=== PATIENT | female | born 1980 | race Caucasian/White ===

== ENCOUNTER 2020-02-14 03:50 | Emergency (ER) | payer MEDICAID ==
[~2020-02-14] VITALS: Ht 160 cm; Wt 75.8 kg
[2020-02-14] MEDS ORDERED: HUMALOG100 UNITS/ IV (04:06)
[2020-02-14] MEDS ORDERED: ASPIR 8181 MG PO (04:07)
[2020-02-14] MEDS ORDERED: LANTUS100 UNITS/ SUB-Q (04:07)
[2020-02-14] MEDS ORDERED: ULTRAM50 MG PO (04:36)
[2020-02-14] MEDS ORDERED: KEFLEX500 MG PO (04:36)
== END 2020-02-14 04:55 | disposition home or self-care (01) ==
LOC: ED 03:50
DX: K08.89 Other specified disorders of teeth and supporting structures (principal); K03.81 Cracked tooth; E11.9 Type 2 diabetes mellitus without complications; Z91.048 Other nonmedicinal substance allergy status; Z79.4 Long term (current) use of insulin; Z79.82 Long term (current) use of aspirin
CPT/HCPCS: 99282; A9270

== ENCOUNTER 2021-10-09 09:21 | Emergency (ER) | payer MEDICAID ==
[~2021-10-09] VITALS: Ht 160 cm; Wt 67.9 kg
[~2021-10-09 09:21] MED LIST: ASPIR 8181 MG PO; HUMALOG100 UNITS/ IV; KEFLEX500 MG PO; LANTUS100 UNITS/ SUB-Q; ULTRAM50 MG PO
--- OUTSIDE RECORDS SUMMARY | 2021-10-09 09:28 | XMS ---
PreManage Notification: MIKE GLASGOW Security House Cleaner Events No recent Security Events currently on file CRITERIA MET - [facility] - 2 Visits in 30 Days CARE PROVIDERS ABEL TANG Physician Platen Press Operator Apprentice: Medical Current PHONE: Unknown MORENA YUN [facility] Current PHONE: Unknown Samantha has no Care Guidelines for this patient. Evelio VISIT COUNT (12 MO.) 2 Machelle Sterling [address] [place] [address] TOTAL 3 NOTE: Visits indicate total known visits. ED/UCC VISIT TRACKING (12 MO.) 10/09/2021 09:22 TAE Major TYPE: Emergency COMPLAINT: - VOMITING, DIARRHEA 10/02/2021 17:16 Machelle [facility] TYPE: Emergency DIAGNOSES: - Flank Pain - Abscess - Dysuria - Hyperglycemia, unspecified - Candidiasis, unspecified - Laceration on Back - Cellulitis, unspecified - Cutaneous abscess, unspecified - Sepsis, unspecified organism 03/25/2021 12:57 Machelle [facility] TYPE: Emergency DIAGNOSES: - Cutaneous abscess of neck - Back Pain; Abscess - Urinary tract infection, site not specified - Hyperglycemia, unspecified - Other stimulant abuse, uncomplicated - Abscess INPATIENT VISIT TRACKING (12 MO.) 10/02/2021 17:16 Nondenominationalkyle [facility] TYPE: Medical Surgical DIAGNOSES: - Cutaneous abscess, unspecified - Hyperglycemia, unspecified - Urinary tract infection, site not specified - Cellulitis, unspecified - Dysuria - Candidiasis, unspecified - Sepsis, unspecified organism [email or web address]
[2021-10-09] MEDS ORDERED: AMOX TR-K CLV1 EAC1 PO (18:35)
[2021-10-09] MEDS ORDERED: PROMETHAZINE HC25 M1 PO (18:35)
== END 2021-10-09 18:52 | disposition home or self-care (01) ==
LOC: ED 09:21
DX: A59.9 Trichomoniasis, unspecified (principal); N39.0 Urinary tract infection, site not specified; R19.7 Diarrhea, unspecified; R11.2 Nausea with vomiting, unspecified; E11.9 Type 2 diabetes mellitus without complications; Z91.048 Other nonmedicinal substance allergy status; Z88.5 Allergy status to narcotic agent; Z79.4 Long term (current) use of insulin
CPT/HCPCS: 36415; 80053; 81001; 85025; 87493; 96374; 96375; 96376; 99284-25; J1790; J2405; J7030

== ENCOUNTER 2021-10-19 09:45 | Emergency (ER) | payer MEDICAID ==
[~2021-10-19] VITALS: Ht 160 cm; Wt 67.6 kg
[~2021-10-19 09:45] MED LIST changes: +AMOX TR-K CLV1 EAC1 PO; +PROMETHAZINE HC25 M1 PO
--- OUTSIDE RECORDS SUMMARY | 2021-10-19 09:52 | XMS ---
PreManage Notification: MIKE GLASGOW Security Ladle Car Operator Events No recent Security Events currently on file CRITERIA MET - [facility] - 2 Visits in 30 Days CARE PROVIDERS ABEL TANG Physician Retail Merchandiser Technician: Medical Current PHONE: Unknown MORENA YUN [facility] Current PHONE: Unknown Samantha has no Care Guidelines for this patient. Evelio VISIT COUNT (12 MO.) 3 Machelle Sterling 2 [facility] TOTAL 5 NOTE: Visits indicate total known visits. ED/UCC VISIT TRACKING (12 MO.) 10/19/2021 09:46 TAE Major TYPE: Emergency COMPLAINT: - VOMITING 10/17/2021 17:02 Machelle [facility] TYPE: Emergency DIAGNOSES: - Hypomagnesemia - Nausea - Hypokalemia - Hyperglycemia, unspecified - Abdominal Pain 10/09/2021 09:22 [place] TYPE: Emergency COMPLAINT: - VOMITING, DIARRHEA DIAGNOSES: - Nausea with vomiting, unspecified - Diarrhea, unspecified - Other nonmedicinal substance allergy status - Type 2 diabetes mellitus without complications - Urinary tract infection, site not specified - half-way (current) use of insulin - Trichomoniasis, unspecified - Allergy status to narcotic agent 10/02/2021 17:16 Machelle CORDERO TYPE: Emergency DIAGNOSES: - Flank Pain - Abscess - Dysuria - Hyperglycemia, unspecified - Candidiasis, unspecified - Laceration on Back - Cellulitis, unspecified - Cutaneous abscess, unspecified - Sepsis, unspecified organism 03/25/2021 12:57 Machelle CORDERO TYPE: Emergency DIAGNOSES: - Cutaneous abscess of neck - Back Pain; Abscess - Urinary tract infection, site not specified - Hyperglycemia, unspecified - Other stimulant abuse, uncomplicated - Abscess INPATIENT VISIT TRACKING (12 MO.) 10/02/2021 17:16 Machelle CORDERO TYPE: Medical Surgical DIAGNOSES: - Cutaneous abscess, unspecified - Hyperglycemia, unspecified - Urinary tract infection, site not specified - Cellulitis, unspecified - Dysuria - Candidiasis, unspecified - Sepsis, unspecified organism [email or web address]
== END 2021-10-19 19:38 ==
LOC: ED 09:45
DX: N17.9 Acute kidney failure, unspecified (principal); E11.65 Type 2 diabetes mellitus with hyperglycemia; R11.2 Nausea with vomiting, unspecified; Z91.048 Other nonmedicinal substance allergy status; Z88.5 Allergy status to narcotic agent; Z79.899 Other long term (current) drug therapy; Z20.822 Contact with and (suspected) exposure to COVID-19
CPT/HCPCS: 36415; 80048; 80053; 81001; 82010; 82803; 83735; 84703; 85025; 96374; 99284-25; A9270; C9803; J1790; J1815; J7030; U0003

== ENCOUNTER 2022-06-16 21:01 | Emergency (ER) | payer MEDICAID ==
[~2022-06-16] VITALS: Ht 162.6 cm; Wt 65.3 kg
--- OUTSIDE RECORDS SUMMARY | 2022-06-16 21:10 | XMS ---
PreManage Notification: MIKE GLASGOW Security Skin Installer Events 1 event(s) in the past 18 months Most recent security events: Elopement at [facility] 10/19/2021 09:46 - Patient eloped before treatment completed. - Patient with suicidal and/or homicidal ideations eloped. - Patient eloped with IV in place. Details: PATIENT LEFT AMA CRITERIA MET - [facility] - 2 Visits in 30 Days - 6 ED Visits in 6 Months CARE PROVIDERS ABEL TANG Physician Stretcher Leveler Operator Helper: Medical Current PHONE: Unknown MORENA YUN [facility] Current PHONE: Unknown Samantha has no Care Guidelines for this patient. ELuzmaria. VISIT COUNT (12 MO.) [address] [facility] [facility] Aguirre[facility] TOTAL 26 NOTE: Visits indicate total known visits. ED/UCC VISIT TRACKING (12 MO.) 06/16/2022 21:02 [facility] [place] TYPE: Emergency COMPLAINT: - SWALLOW PROBLEM, FLANK PAIN, DIZZYNESS 06/15/2022 16:03 [facility] [place] TYPE: Emergency COMPLAINT: - ABD PAIN, VOMITING, SHARP PAIN IN STERNUM 06/12/2022 20:24 Sabianism CarlaJose [facility] TYPE: Emergency DIAGNOSES: - Vomiting; Abdominal Pain - Emesis 06/11/2022 09:18 Sabianism CarlaJose [facility] TYPE: Emergency DIAGNOSES: - Vomiting (Severe) - vomitting - Upper abdominal pain, unspecified - Nausea with vomiting, unspecified 06/10/2022 04:12 Sabianism CarlaJose [facility] TYPE: Emergency DIAGNOSES: - Vomitting, abdominal pain - Nausea with vomiting, unspecified - Generalized abdominal pain 05/30/2022 23:50 Sabianism CarlaJose [facility] TYPE: Emergency DIAGNOSES: - Wound Check - Facial swelling - Cellulitis, unspecified 04/16/2022 04:06 Sabianism Carla[place] TYPE: Emergency DIAGNOSES: - Syncope and collapse - Syncope - chin, knee, abdominal pain 04/15/2022 09:45 Machelle Diego[facility] TYPE: Emergency DIAGNOSES: - Emesis - FCI (current) use of insulin - Epigastric pain - Trichomoniasis, unspecified - Hyperglycemia, unspecified - Type 2 diabetes mellitus with hyperglycemia - stomach pain,fever - Nausea with vomiting, unspecified 04/13/2022 17:20 Sabianism CarlaJose [place] TYPE: Emergency DIAGNOSES: - Other specified soft tissue disorders - Localized edema - FCI (current) use of insulin - Other specified diabetes mellitus with hyperglycemia - Leg Swelling - Type 2 diabetes mellitus with diabetic chronic kidney disease - Chronic kidney disease, unspecified - Other specified abnormal findings of blood chemistry - Type 2 diabetes mellitus with hyperglycemia 03/30/2022 07:10 Sabianism CarlaJose [place] TYPE: Emergency DIAGNOSES: - Pilonidal cyst with abscess - Other injury of unspecified body region, initial encounter - Other acute postprocedural pain - Pain, unspecified - post surgery pain - Wound 03/29/2022 15:38 Sabianism Jose [facility] TYPE: Emergency DIAGNOSES: - Pilonidal cyst with abscess - Abscess - Leg Edema 03/28/2022 19:00 Sabianism Jose [facility] TYPE: Emergency DIAGNOSES: - Abscess - Sore 02/20/2022 15:30 Sabianism Jose [facility] TYPE: Emergency DIAGNOSES: - Emesis - Vomitting - Tachycardia, unspecified - Duodenitis without bleeding - Other specified noninflammatory disorders of uterus - Other specified disease of esophagus 02/15/2022 15:38 Sabianism Asher [facility] TYPE: Emergency DIAGNOSES: - Hyperglycemia, unspecified - Emesis - Constipation, unspecified - Nausea, Vomiting - Nausea with vomiting, unspecified 02/14/2022 12:18 [facility]: [facility] DIAGNOSES: - Wound check;Vomitting;Constipated 02/13/2022 06:26 [facility] TYPE: Emergency DIAGNOSES: - Vomiting - Constipation, unspecified - Emesis - Hyperglycemia, unspecified - Nausea with vomiting, unspecified 02/10/2022 16:03 [facility] TYPE: Emergency DIAGNOSES: - Wound Check - Wound on Back - Cutaneous abscess of right upper limb 01/10/2022 01:31 Sabian[facility] CarlaJose [place] TYPE: Emergency DIAGNOSES: - Vomiting - Viral infection, unspecified - Type 2 diabetes mellitus with hyperglycemia - Dehydration - Emesis 12/25/2021 16:26 [facility] TYPE: Emergency COMPLAINT: - Pruritus, unspecified DIAGNOSES: 1. Pruritus, unspecified 2. Cellulitis, unspecified 10/26/2021 12:17 [facility] TYPE: Emergency COMPLAINT: - Type 2 diabetes mellitus with hyperglycemia - Encounter for issue of repeat prescription DIAGNOSES: 1. Type 2 diabetes mellitus with hyperglycemia 2. Encounter for issue of repeat prescription Plus 6 More Visits INPATIENT VISIT TRACKING (12 MO.) 10/02/2021 17:16 Machelle CORDERO TYPE: Medical Surgical DIAGNOSES: - Hyperglycemia, unspecified - Sepsis, unspecified organism - Dysuria - Urinary tract infection, site not specified - Cutaneous abscess, unspecified - Candidiasis, unspecified - Cellulitis, unspecified [id number]
[2022-06-17] MEDS ORDERED: DICYCLOMINE HCL10 MG PO (00:14)
[2022-06-17] MEDS ORDERED: HUMALOG100 UNITS/ IV (00:14)
[2022-06-17] MEDS ORDERED: LIPITOR10 MG PO (00:15)
[2022-06-17] MEDS ORDERED: LANTUS100 UNITS/ SUB-Q (00:15)
[2022-06-17] MEDS ORDERED: ATORVASTATIN CA10 MG PO (00:15)
[2022-06-17] MEDS ORDERED: CEPHALEXIN500 M1 PO (00:15)
[2022-06-17] MEDS ORDERED: DOXYCYCLINE HY100 MG PO (00:15)
[2022-06-17] MEDS ORDERED: OMEPRAZOLE20 MG PO (00:15)
[2022-06-17] MEDS ORDERED: ZESTRIL5 MG PO (00:16)
[2022-06-17] MEDS ORDERED: VAZALORE81 MG PO (00:16)
[2022-06-17] MEDS ORDERED: MAGNESIUM OXID400 M1 PO (06:36)
== END 2022-06-17 07:48 | disposition home or self-care (01) ==
LOC: ED 21:01
DX: N17.9 Acute kidney failure, unspecified (principal); E11.22 Type 2 diabetes mellitus with diabetic chronic kidney disease; N18.9 Chronic kidney disease, unspecified; E83.42 Hypomagnesemia; Z20.822 Contact with and (suspected) exposure to COVID-19; Z88.2 Allergy status to sulfonamides; Z88.5 Allergy status to narcotic agent; Z79.899 Other long term (current) drug therapy; Z79.4 Long term (current) use of insulin; Z79.82 Long term (current) use of aspirin
CPT/HCPCS: 36415; 73110; 80048; 80053; 81001; 82565; 83735; 84520; 84703; 85025; 87502; 96361; 96365; 96366; 99284-25; J3475; J7030; J7121; U0003

== ENCOUNTER 2022-07-14 01:47 | Emergency (ER) | payer MEDICAID ==
[~2022-07-14] VITALS: Ht 162.6 cm; Wt 67.1 kg
[~2022-07-14 01:47] MED LIST changes: +ATORVASTATIN CA10 MG PO; +CEPHALEXIN500 M1 PO; +DICYCLOMINE HCL10 MG PO; +DOXYCYCLINE HY100 MG PO; +LIPITOR10 MG PO; +MAGNESIUM OXID400 M1 PO; +OMEPRAZOLE20 MG PO; +VAZALORE81 MG PO; +ZESTRIL5 MG PO
--- OUTSIDE RECORDS SUMMARY | 2022-07-14 01:52 | XMS ---
PreManage Notification: MIKE GLASGOW Security Miller Wood Flour Events 1 event(s) in the past 18 months Most recent security events: Elopement at [facility] 10/19/2021 09:46 - Patient eloped before treatment completed. - Patient with suicidal and/or homicidal ideations eloped. - Patient eloped with IV in place. Details: PATIENT LEFT AMA CRITERIA MET - [facility] - 3 Facilities in 90 Days - [facility] - 2 Visits in 30 Days - [facility] - Has Care Guidelines - 6 ED Visits in 6 Months CARE PROVIDERS ABEL TANG Physician Credit Reference Clerk: Medical Current PHONE: Unknown MORENA YUN [facility] Current PHONE: Unknown Guidelines Source: [facility] Guidelines Date: 06/19/2022 Care Recommendation: -Provide patient with educational materials that support access and utilization of appropriate care resources. Ensure that this information illustrates community-based care sites such as clinics, urgent cares and non-acute care sites that provide off-hour services. Additionally, provide these educational materials in a format that support your communitys language and cultural preferences. Refer to CM/SW when warranted to discuss possible secondary gains, missed needs, barriers to care, or to redirect to community providers. \T\nbsp; Encourage patient to seek care from a community provider to improve continuity of care. \T\ nbsp; Recommend no routine medication refills to encourage community follow-up.\ T\nbsp; Please provide community resources to patients that do not have a designated primary care provider. Pain/Opioid Agreement: Talk to patients about a treatment plan. Discuss realistic goals for pain and functionhelp them to understand that pain is a normal part of life and healing. Make sure they know the significant risks associated with opioid use \T\nbsp; Care History Substance Use/Overdose 06/19/2022 [facility] Uses methamphetamines. 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 E.D. VISIT COUNT (12 MO.) 4 [facility] 18 [facility] 1 [facility] 5 [facility]. TOTAL 28 NOTE: Visits indicate total known visits. ED/UCC VISIT TRACKING (12 MO.) 07/14/2022 01:48 TAE Major TYPE: Emergency COMPLAINT: - COUGH 07/09/2022 15:05 [facility] Janusz CORDERO TYPE: Emergency DIAGNOSES: - n/v - Tubulo-interstitial nephritis, not specified as acute or chronic - Emesis - Tachycardia, unspecified - Abdominal Pain - Epigastric pain 06/16/2022 21:02 TAE [facility] TYPE: Emergency COMPLAINT: - SWALLOW PROBLEM, FLANK PAIN, DIZZYNESS DIAGNOSES: - correction (current) use of insulin - Vomiting, unspecified - Type 2 diabetes mellitus with diabetic chronic kidney disease - Allergy status to narcotic agent - Acute kidney failure, unspecified - Chronic kidney disease, unspecified - Allergy status to sulfonamides - Hypomagnesemia - Other termite control technician (current) drug therapy - watermelon inspector (current) use of aspirin - Contact with and (suspected) exposure to COVID-19 06/15/2022 16:03 TAE [place] TYPE: Emergency COMPLAINT: - ABD PAIN, VOMITING, SHARP PAIN IN STERNUM 06/12/2022 20:24 [place] TYPE: Emergency DIAGNOSES: - Emesis - Vomiting; Abdominal Pain 06/11/2022 09:18 [facility]le [facility] [place] TYPE: Emergency DIAGNOSES: - vomitting - Upper abdominal pain, unspecified - Nausea with vomiting, unspecified - Vomiting (Severe) 06/10/2022 04:12 [facility]le [facility] [place] TYPE: Emergency DIAGNOSES: - Nausea with vomiting, unspecified - Generalized abdominal pain - Vomitting, abdominal pain 05/30/2022 23:50 [facility]achelle [facility] [place] TYPE: Emergency DIAGNOSES: - Facial swelling - Cellulitis, unspecified - Wound Check 04/16/2022 04:06 [facility]le [facility] [place] TYPE: Emergency DIAGNOSES: - Syncope - chin, knee, abdominal pain - Syncope and collapse 04/15/2022 09:45 [facility]le [facility] [place] TYPE: Emergency DIAGNOSES: - Epigastric pain - Trichomoniasis, unspecified - Hyperglycemia, unspecified - Type 2 diabetes mellitus with hyperglycemia - stomach pain,fever - Nausea with vomiting, unspecified - Emesis - correction (current) use of insulin 04/13/2022 17:20 Denomin[facility] CarlaJose [place] TYPE: Emergency DIAGNOSES: - Other specified diabetes mellitus with hyperglycemia - Leg Swelling - Type 2 diabetes mellitus with diabetic chronic kidney disease - Chronic kidney disease, unspecified - Other specified abnormal findings of blood chemistry - Type 2 diabetes mellitus with hyperglycemia - Other specified soft tissue disorders - Localized edema - correction (current) use of insulin 03/30/2022 07:10 Denominational CarlaJose [place] TYPE: Emergency DIAGNOSES: - Other injury of unspecified body region, initial encounter - Other acute postprocedural pain - Pain, unspecified - post surgery pain - Wound - Pilonidal cyst with abscess 03/29/2022 15:38 Denominational CarlaJose [place] TYPE: Emergency DIAGNOSES: - Abscess - Leg Edema - Pilonidal cyst with abscess 03/28/2022 19:00 Denominational CarlaJose [place] TYPE: Emergency DIAGNOSES: - Sore - Abscess 02/20/2022 15:30 Denominationaloz [facility] TYPE: Emergency DIAGNOSES: - Vomitting - Tachycardia, unspecified - Duodenitis without bleeding - Other specified noninflammatory disorders of uterus - Other specified disease of esophagus - Emesis 02/15/2022 15:38 Machelle [facility] TYPE: Emergency DIAGNOSES: - Emesis - Constipation, unspecified - Nausea, Vomiting - Nausea with vomiting, unspecified - Hyperglycemia, unspecified 02/14/2022 12:18 [facility] TYPE: Emergency DIAGNOSES: - Wound check;Vomitting;Constipated 02/13/2022 06:26 [facility] TYPE: Emergency DIAGNOSES: - Constipation, unspecified - Emesis - Hyperglycemia, unspecified - Nausea with vomiting, unspecified - Vomiting 02/10/2022 16:03 Denominational CarlaJose [facility] [place] TYPE: Emergency DIAGNOSES: - Wound on Back - Cutaneous abscess of right upper limb - Wound Check 01/10/2022 01:31 Denominational CarlaJose [place] TYPE: Emergency DIAGNOSES: - Viral infection, unspecified - Type 2 diabetes mellitus with hyperglycemia - Dehydration - Emesis - Vomiting Plus 8 More Visits INPATIENT VISIT TRACKING (12 MO.) 10/02/2021 17:16 [place] TYPE: Medical Surgical DIAGNOSES: - Dysuria - Urinary tract infection, site not specified - Cutaneous abscess, unspecified - Candidiasis, unspecified - Cellulitis, unspecified - Hyperglycemia, unspecified - Sepsis, unspecified organism [email or web address]
[2022-07-14] MEDS ORDERED: TAMIFLU75 MG PO (05:00)
[2022-07-14] MEDS ORDERED: BENZONATATE100 MG PO (05:01)
--- NOTE | 2022-07-14 21:38 | EKG ---
[facility] [address] [facility] [place] [address] Signed Sinus tachycardia Left axis deviation Abnormal ECG No previous ECGs available Confirmed by Jasmin Tavarez MD () on 07/14/2022 9:37:47 PM Electronically Signed By: JASMIN TAVAREZ MD 07/14/22 [id number] PATIENT NAME: MIKE GLASGOW Electrocardiogram DATE OF : 80 PHYSICIAN: JASMIN TAVAREZ MD REPORT #: [id number] REPORT IS CONFIDENTIAL AND NOT TO BE RELEASED WITHOUT AUTHORIZATION
== END 2022-07-14 05:30 | disposition home or self-care (01) ==
LOC: ED 01:47
DX: J10.1 Influenza due to other identified influenza virus with other respiratory manifestations (principal); F15.10 Other stimulant abuse, uncomplicated; E11.9 Type 2 diabetes mellitus without complications; Z88.2 Allergy status to sulfonamides; Z88.8 Allergy status to other drugs, medicaments and biological substances; Z88.5 Allergy status to narcotic agent; Z91.048 Other nonmedicinal substance allergy status; Z91.040 Latex allergy status; Z79.899 Other long term (current) drug therapy; Z79.4 Long term (current) use of insulin; Z79.82 Long term (current) use of aspirin; Z20.822 Contact with and (suspected) exposure to COVID-19
CPT/HCPCS: 36415; 71045; 80053; 81001; 82010; 83605; 84484; 84703; 85025; 87502; 93005; 93010; 96374; 99284-25; A9270; G0480; J7030; U0003

== ENCOUNTER 2022-08-18 09:45 | Inpatient (IN) | payer MEDICAID ==
[~2022-08-18] VITALS: Ht 162.6 cm; Wt 71.4 kg
[~2022-08-18 09:45] MED LIST changes: +BENZONATATE100 MG PO; +HUMALOG100 UNITS/ SUB-Q; +LO-DOSE ASPIRIN81 MG PO; +TAMIFLU75 MG PO; -VAZALORE81 MG PO
--- OUTSIDE RECORDS SUMMARY | 2022-08-18 09:54 | XMS ---
PreManage Notification: MIKE GLASGOW Security Licensed Psychologist Director Events 1 event(s) in the past 18 months Most recent security events: Elopement at [facility] 10/19/2021 09:46 - Patient eloped before treatment completed. - Patient with suicidal and/or homicidal ideations eloped. - Patient eloped with IV in place. Details: PATIENT LEFT AMA CRITERIA MET - 6 ED Visits in 6 Months - [facility] - 3 Facilities in 90 Days - [facility] - Has Care Guidelines CARE PROVIDERS ABEL TANG Physician Water Manager: Medical Current PHONE: Unknown MORENA YUN [facility] Current PHONE: Unknown Guidelines Source: [facility] Guidelines Date: 06/19/2022 Care Recommendation: -Provide patient [...] use \T\nbsp; Care History Substance Use/Overdose 06/19/2022 [facility] Uses methamphetamines. 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 E.D. VISIT COUNT (12 MO.) 4 [facility] 18 [facility] 1 [facility] TOTAL [facility] NOTE: Visits indicate total known visits. ED/UCC VISIT TRACKING (12 MO.) 08/18/2022 09:47 TAE Major TYPE: Emergency COMPLAINT: - ABD PAIN, L FLANK PAIN, SORE THROAT, SOB, HEADACHE 07/14/2022 01:48 TAE Major TYPE: Emergency COMPLAINT: - COUGH DIAGNOSES: - Other dedicated intermodal truck driver (current) drug therapy - senior living (current) use of aspirin - terminal make up operator (current) use of insulin - Type 2 diabetes mellitus without complications - Other stimulant abuse, uncomplicated - Allergy status to sulfonamides - Influenza due to other identified influenza virus with other respiratory manifestations - Allergy status to other drugs, medicaments and biological substances - Other nonmedicinal substance allergy status - Contact with and (suspected) exposure to COVID-19 - Cough, unspecified - Latex allergy status - Allergy status to narcotic agent 07/09/2022 15:05 [facility] Meena CORDERO TYPE: Emergency DIAGNOSES: - Emesis - Tachycardia, unspecified - Abdominal Pain - Epigastric pain - n/v - Tubulo-interstitial nephritis, not specified as acute or chronic 06/16/2022 21:02 TAE [place] TYPE: Emergency COMPLAINT: - SWALLOW PROBLEM, FLANK PAIN, DIZZYNESS DIAGNOSES: - Allergy status to narcotic agent - Acute kidney failure, unspecified - Chronic kidney disease, unspecified - Allergy status to sulfonamides - Hypomagnesemia - Other dedicated intermodal truck driver (current) drug therapy - terminal make up operator (current) use of aspirin - Contact with and (suspected) exposure to COVID-19 - terminal make up operator (current) use of insulin - Vomiting, unspecified - Type 2 diabetes mellitus with diabetic chronic kidney disease 06/15/2022 16:03 TAE Major TYPE: Emergency COMPLAINT: - ABD PAIN, VOMITING, SHARP PAIN IN STERNUM 06/12/2022 20:24 Machelle CORDERO TYPE: Emergency DIAGNOSES: - Emesis - Vomiting; Abdominal Pain 06/11/2022 09:18 [facility] [place] [place] TYPE: Emergency DIAGNOSES: - Upper abdominal pain, unspecified - Nausea with vomiting, unspecified - Vomiting (Severe) - vomitting 06/10/2022 04:12 [facility] Carla[facility] [place] TYPE: Emergency DIAGNOSES: - Generalized abdominal pain - Vomitting, abdominal pain - Nausea with vomiting, unspecified 05/30/2022 23:50 [facility] Carla[facility] [place] TYPE: Emergency DIAGNOSES: - Cellulitis, unspecified - Wound Check - Facial swelling 04/16/2022 04:06 [facility] Carla[facility] [place] TYPE: Emergency DIAGNOSES: - chin, knee, abdominal pain - Syncope and collapse - Syncope 04/15/2022 09:45 [facility] Carla[facility] [place] TYPE: Emergency DIAGNOSES: - Hyperglycemia, unspecified - Type 2 diabetes mellitus with hyperglycemia - stomach pain,fever - Nausea with vomiting, unspecified - Emesis - senior living (current) use of insulin - Epigastric pain - Trichomoniasis, unspecified 04/13/2022 17:20 [facility] Carla[facility] [place] TYPE: Emergency DIAGNOSES: - Type 2 diabetes mellitus with diabetic chronic kidney disease - Chronic kidney disease, unspecified - Other specified abnormal findings of blood chemistry - Type 2 diabetes mellitus with hyperglycemia - Other specified soft tissue disorders - Localized edema - senior living (current) use of insulin - Other specified diabetes mellitus with hyperglycemia - Leg Swelling 03/30/2022 07:10 [facility] Carla[facility] [place] TYPE: Emergency DIAGNOSES: - Pain, unspecified - post surgery pain - Wound - Pilonidal cyst with abscess - Other injury of unspecified body region, initial encounter - Other acute postprocedural pain 03/29/2022 15:38 [facility] CarlaJose [facility] TYPE: Emergency DIAGNOSES: - Leg Edema - Pilonidal cyst with abscess - Abscess 03/28/2022 19:00 [facility] CarlaJose [facility] TYPE: Emergency DIAGNOSES: - Sore - Abscess 02/20/2022 15:30 [facility] CarlaJose [facility] TYPE: Emergency DIAGNOSES: - Duodenitis without bleeding - Other specified noninflammatory disorders of uterus - Other specified disease of esophagus - Emesis - Vomitting - Tachycardia, unspecified 02/15/2022 15:38 [facility] CarlaJose [facility] TYPE: Emergency DIAGNOSES: - Nausea, Vomiting - Nausea with vomiting, unspecified - Hyperglycemia, unspecified - Emesis - Constipation, unspecified 02/14/2022 12:18 [facility] Carla[facility] [place] TYPE: Emergency DIAGNOSES: - Wound check;Vomitting;Constipated 02/13/2022 06:26 [facility] [place] TYPE: Emergency DIAGNOSES: - Hyperglycemia, unspecified - Nausea with vomiting, unspecified - Vomiting - Constipation, unspecified - Emesis 02/10/2022 16:03 [facility] [place] TYPE: Emergency DIAGNOSES: - Cutaneous abscess of right upper limb - Wound Check - Wound on Back Plus 9 More Visits INPATIENT VISIT TRACKING (12 MO.) 10/02/2021 17:16 Machelle [place] TYPE: Medical Surgical DIAGNOSES: - Cutaneous abscess, unspecified - Candidiasis, unspecified - Cellulitis, unspecified - Hyperglycemia, unspecified - Sepsis, unspecified organism - Dysuria - Urinary tract infection, site not specified [id number]
--- NOTE | 2022-08-18 15:38 | NUR ---
PT ADMITTED FROM ED. PT WEANED TO ROOM AIR, CONTINUOUS PULSE OX IN PLACE, O2 SATS 96-97%, LUNG SOUNDS CLEAR IN UPPERS, FINE CRACKLES IN BILATER LOWER LOBE, FREQUENT COUGH. PT DENIES NAUSEA, BOWEL TONES ACTIVE, LAST BM YESTERDAY, 60G CARB DIET, PT HAS NOT EATEN TODAY, SANDWICH BOX OBTAINED. PT WITH EDEMA TO BLE, 1-2+, PT REPORT OF CHRONIC TINGLINING IN EXTREMITIES, AT BASELINE. PT REPORT THAT SHE HAS NOT BEEN TAKING HER HOME MEDICATIONS SHE IS FROM [place] BUT HAS [place]EN [place] [facility] AND IS UNABLE TO GET HER PRESCRIPTIONS FILLED. DISCUSSED PLAN OF CARE FOR THE EVENING, SAFETY AND DIET. PT DENIES OTHER NEEDS AT THIS TIME.
--- NOTE | 2022-08-18 16:50 | NUR ---
Updated by Rn pt states need to have medications filled. She has been getting meds filled in [facility] on [address]. In and spoke with Latha. Answers are difficult to pin down. She denies homelessness, but states she has been staying with her boyfriends parents in [place], her sister in [place], and [employer] [employer] in [place]. She states they are in [place] as Sergio's 4 children live here. He lives on SSD. She states she has been attempting to get SSD since 2019 as she is blind. She is receiving coupons from the [employer] to stay at [place] [id number]. They also lived at the [facility] in [place]. She initially states they were kicked out, then states she was hospitalized and could not return. We discussed if she wants her routine meds filled she will need to return to [place] as [place]. Pt admits to meth use and does not want to speak with anyone about quiting. She has a continuous cough, edema in her abd and lower extremities. She believes this from her heart not pumping the water through her system. She states she cannot lie flat as she cannot breath. Pt plans on dc to [facility] with longer plan to return to Sergio's parents at the end of the month.
--- NOTE | 2022-08-18 20:43 | NUR ---
PATIENT CALLED FOR EXTRA BLANKET AND PILLOW. PROVIDED. MALE GUEST/FAMILY IN THE COUCH LAYING DOWN.
--- NOTE | 2022-08-19 01:37 | NUR ---
PT LYING IN BED [id number] QUIETLY. RESP EVEN ET UNLABORED O2 @ 2L NC. ABLE TO MAKE NEEDS KNOWN. NO S/S OF WITHDRAWAL AT THIS TIME. NO COMPLAINTS OF PAIN OR DISTRESS AT THIS TIME. FAMILY AT BEDSIDE.
--- NOTE | 2022-08-19 01:37 | NUR ---
PRIMARY RN NOTIFIED RE BP.
--- NOTE | 2022-08-19 08:13 | NUR ---
medications reconciled using pharmacy records and patient interview
--- NOTE | 2022-08-19 09:03 | NUR ---
PATIENT RESTING IN BED DURING MORNING ASSESMENT. PT ALERT AND ORIENTED. PT ATE A GOOD BREAKFAST AND GOT MORNING MEDICATIONS. PATIENT CALL LIGHT IN REACH, FRESH ICE WATER. DENIES ANY CARES NEEDED AT THIS TIME.
--- NOTE | 2022-08-19 10:31 | NUR ---
PT REFUSED TO TAKE A BATH AND BRUSH TEETH. SHE WANTED TO POSTPONE UNTIL THIS AFTERNOON TO ALLOW TIME FOR A NAP.
--- NOTE | 2022-08-19 13:00 | NUR ---
EMMA COLUNGA INFORM ME THAT PT DOES NOT WANT TO BE DISTURBED AT THIS TIME. WILL FOLLOW.
--- NOTE | 2022-08-19 13:34 | NUR ---
PULP DRIER FIRER OFFERED TO HELP THE PATIENT WITH A BED BATH AND ORAL CARE, BUT PATIENT DECLINED AND ASKED TO POSTPONE TO A LATER TIME.
--- NOTE | 2022-08-19 14:00 | NUR ---
ROUNDING ON PT. SHE C/O BEING SOB AT TIMES. CPOX IN PLACE AND O2 SAT IS 93% AT REST AND DROPS TO 88% WHEN COUGHING. PT. COMPLAINS OF RATTLING COUGH AND HAS HAD PRN COUGH MED. PT. GIVEN I.S. AND EDUCATION. PT. DEMONSTRATED I.S. USE AND O2 SAT. INCREASED TO 98%. SHE WAS ENCOURAGED TO USE I.S. FREQUENTLY. WILL CONTINUE TO MONITOR.
--- NOTE | 2022-08-19 15:28 | NUR ---
PATIENT SITTING UP IN BED STATING THAT SHE FEELS THAT SHE IS NOT ABLE TO TAKE A GOOD BREATH. PT STATES SITTING UP MAKES IT FEEL LIKE SHE CAN BREATH BETTER. VITAL SIGNS ARE STABLE. PT ADVISED THIS NURSE THAT SHE GOT AN INHALER IN THE ER THE OTHER NIGHT. THIS NURSE TALKED TO HE WAS ON THE FLOOR. HE HAS PLACED ORDER FOR RT FOR NEBULIZER.
--- NOTE | 2022-08-19 17:42 | NUR ---
PATIENT ATE DINNER IN BED, PATIENT WATCHING THINGS ON HER PHONE. EVENING MEDICATIONS GIVEN. PT DENIES ANY CARES, CALL LIGHT IN REACH. 6PM VITALS TAKEN. PT STATES NEBULIZER TREATMENT HELPED.
--- NOTE | 2022-08-19 18:52 | NUR ---
THIS NURSE IN TO DO ROUNDS ON PATIENT. PATIENT SITTING UP IN BED VISITING WITH HER BOYFRIEND. PT WAS UP TO VOID ON HER OWN. PT REQUESTED MORE ICE IN HER CUP. DENIES ANY OTHER CARES.
--- NOTE | 2022-08-19 19:43 | NUR ---
REPORT RECEIVED FROM OFF GOING NURSE PT LYING IN BED WATCHING TV FIANCEE AT BEDSIDE. NO COMPLAINTS OF PAIN, SOB OR DISTRESS NOTED AT TIME.
--- NOTE | 2022-08-19 19:56 | NUR ---
INFORMED PT TO WEAR O2 WHILE SLEEPING O2 SATS DROP TO HIGH 80'S WHILE SLEEPING.
--- NOTE | 2022-08-20 01:59 | NUR ---
PATIENTS CPOX PROBE REPLACED. PATIENTS URINE DUMPED. FRESH ICE WATER PROVIDED. NO FURTHER NEEDS NOTED. CALL LIGHT IN REACH. PATIENT IS ON RA AT THIS TIME.
--- NOTE | 2022-08-20 02:32 | NUR ---
PT LYING IN BED WATCHING TV. RESP EVEN ET UNLABORED. ABLE TO MAKE NEEDS KNOWN. PT CONTINUES TO HAVE NONPRODUCTIVE COUGH. PT REFUSED LOVENOX STATED IS AMBULATORY AND DOESN'T NEED A BLOOD THINNER. PT HAS NO COMPLAINT OF PAIN OR DISTRESS AT THIS TIME.
--- NOTE | 2022-08-20 06:11 | NUR ---
PT WATCHING TV IN BED. NO COMPLAINTS OF PAIN OR DISTRESS AT THIS TIME.
--- NOTE | 2022-08-20 07:39 | NUR ---
Got report on patient from date night sitter nurse. Went in and checked on patient. Denies any cares, cleaned up room. Pt given fresh water.
--- NOTE | 2022-08-20 08:57 | NUR ---
PATIENT SITTING UP ON THE SIDE OF THE BED FOR BREAKFAST. PT REFUSED SITTING IN THE CHAIR FOR BREAKFAST. PT ADVISED OF THE IMPORTANCE OF DOING THIS. PT REQUEST JUST TO SIT ON THE BED. MORNING INSULIN GIVEN, PATIENT ATE 75% OF HER BREAKFAST. PT DENIES ANY OTHER CARES.
--- NOTE | 2022-08-20 09:47 | NUR ---
Patient requested a shower today. Patient showered independently with no falls or issues. SOCIAL WORK ADMINISTRATOR and SN changed bed linens and patient brushed her teeth independently.
--- NOTE | 2022-08-20 09:59 | NUR ---
PATIENT REQUESTTING A PRN NEBULIZER TREATMENT. VITALS ARE STABLE. RT CALLED AND WILL BE UP TO GIVE PATIENT NEBULIZER. PT DENIES ANY OTHER CARES. PT WAS UP AND GIVEN A SHOWER.
--- NOTE | 2022-08-20 10:14 | NUR ---
RT IS HERE GIVING PATIENT NEBULIZER TREATMENT.
--- NOTE | 2022-08-20 11:28 | NUR ---
THIS NURSE INTO PATIENTS ROOM TO DO ROUNDS. PATIENTS ASLEEP IN BED, COVERED UP WITH BLANKETS.
--- NOTE | 2022-08-20 11:57 | NUR ---
PER AM MEETING PATIENT TO REMAIN INPATIENT TODAY, BUT MAY DC TOMORROW. NO CHANGE IN DISCHARGE PLAN AT THIS TIME. PATIENT HAS DECLINED PCP AND CESAR REFERRAL AT THIS TIME.
--- NOTE | 2022-08-20 13:50 | NUR ---
PATIENT UP AT THE BEDSIDE. PTS BOYFRIEND JUST RECENTLY LEFT. PT SEEMS TO BE GETTING A LITTLE ANXIOUS IN THE ROOM BUT REFUSES TO GET UP AND MOVE AROUND AND SIT IN THE CHAIR AND GET OUT OF BED FOR A LITTLE BIT. PT DID JUST PUT OUT 1000ML OF URINE AFTER THE FIRST LASIX IV 40MG. PT WILL BE GETTING HER SECOND IV LASIX HERE AT 1400.
--- NOTE | 2022-08-20 17:18 | NUR ---
PATIENT UP AND WALKED ONE LAP WITH THIS NURSE. SHE STATES SHE IS UNABLE TO DO MORE HER FEET START TINGLING. I WAS ABLE TO GET PATIENT UP TO THE CHAIR FOR DINNER. SHE STATES SHE WILL DO ANOTHER LAP AFTER DINNER. PT HAD NO TROUBLE WALKING, SHE DOES WALK FAST.
--- NOTE | 2022-08-20 17:20 | NUR ---
PATIENT WALKED ONE LAP AROUND MED/SURG FLOOR. SHE REFUSED TO WALK ANOTHER LAP DUE TO TINGLING IN HER LEGS, BUT SHE IS SITTING UP EATING HER DINNER IN THE CHAIR IN HER ROOM AND IS WILLING TO WALK AROUND MED/SURG FLOOR AGAIN AFTER MEAL IS DONE.
--- NOTE | 2022-08-20 18:18 | NUR ---
PATIENT CURRENTLY SLEEPING IN BED. RESPIRATIONS REGULAR RATE AND RHYTHM.
--- NOTE | 2022-08-20 18:41 | NUR ---
PATIENT C/O FLANK PAIN THAT SHE STATES THIS HAS BEEN OFF AND ON FOR THE LAST WEEK. PT WOULD LIKE TYLENOL AND ALSO A WARM PACK.
--- NOTE | 2022-08-20 18:50 | NUR ---
PATIENT STATES ITS ONLY HER RIGHT FLANK THAT HURTS, THE WARM PACK HELPED RIGHT AWAY. PT DENIES ANY DISCOMFORT, PAIN WITH URINATION.
--- NOTE | 2022-08-20 19:00 | NUR ---
REPORT RECEIVED FROM EMMA CALDWELL. PT LAYING IN BED WATCHING TV. PT RESPONDS WHEN ADDRESSED. PT REPORTS NO NEEDS AT THIS TIME. CALL LIGHT IN REACH.
--- NOTE | 2022-08-20 20:33 | NUR ---
IN TO ADMINISTER MEDICATIONS. PT REFUSES MEDICATIONS AND STATES "I AM POOPING JUST FINE." AND "I HAVE BEEN UP AND WALKING." ASSESSMENT COMPLETE. LUNG SOUNDS CLEAR. BOWEL TONES ACTIVE. EDEMA NOTED TO LLE. PT REPORTING PAIN 7/10 IN "LEFT FLANK" HOT PACK PROVIDED. PT REQUESTING VANILLA PUDDING, PROVIDED. PT REQUESTING ICE WATER, PROVIDED. VITALS AND I&Os COMPLETE. PT REPORTS NO OTHER NEEDS AT THIS TIME. CALL LIGHT IN REACH.
--- NOTE | 2022-08-20 21:30 | NUR ---
CALL LIGHT ANSWERED, TEMP IN ROOM LOWERED TO 70 PER pt REQUEST. pt ALSO ASKING FOR A SANDWHICH BOX, [employer] STENOGRAPHER NOTIFIED AND SANDWHICH BOX PROVIDED BY FLOANGE RN. NO ADDITIONAL NEEDS, CALL LIGHT IN REACH. PRIMARY RN ZAMZAM DILLON.
--- NOTE | 2022-08-20 22:30 | NUR ---
IN TO ROUND ON PT. PT SITTING UP IN BED EATING. MALE VISITOR IN ROOM. PT REPORTS NO NEEDS AT THIS TIME. CALL LIGHT IN REACH.
--- NOTE | 2022-08-20 23:36 | NUR ---
IN TO ANSWER CALL LIGHT. PT REQUESTING SOMETHING TO COVER IV SITE TO PREVENT ANY TUGGING. COBAN WITH NO TENSION IN PLACE. PT REQUESTING WATER, WATER PROVIDED. SIGNIFICANT OTHER IN ROOM REQUESTING BLANKETS, BLANKETS PROVIDED. PT REPORTS NO OTHER NEEDS AT THIS TIME. CALL LIGHT IN REACH.
--- NOTE | 2022-08-20 23:40 | NUR ---
IN TO ANSWER CALL LIGHT. PT REQUESTING WARM WATER FOR TEA, WARM WATER PROVIDED. PT REPORTS NO OTHER NEEDS AT THIS TIME. CALL LIGHT IN REACH.
--- NOTE | 2022-08-21 04:34 | NUR ---
IN TO ANSWER CALL LIGHT. PT REQUESTING WATER. WATER PROVIDED. PT SITTING UP IN BED RR EVEN AND UNLABORED. VITALS AND I&Os COMPLETE. ASSESSMENT COMPLETE. PT REPORTS PAIN IN ABD STATES "UPSET STOMACH" 01/18 AND STATES "THROBING." PT DENIES ANY PRN PAIN MEDICATION AT THIS TIME. LUNG SOUNDS CLEAR BOWEL TONES ACTIVE. MILD EDEMA NOTED TO LLE. PT REPORTS NO OTHER NEEDS AT THIS TIME. CALL LIGHT IN REACH. SIGNIFICANT OTHER ON COUCH.
--- NOTE | 2022-08-21 06:14 | NUR ---
IN TO WEIGH PT. PT LAYING ON RIGHT SIDE RR EVEN AND UNLABORED. PTs EYES CLOSED. PT OPENS EYES AND RESPONDS WHEN ADDRESSED. WEIGHT COMPLETE. PT BACK IN BED. PT REPORTS ABD "IS FEELING BETTER." PT DENIES ANY NEEDS AT THIS TIME. CALL LIGHT IN REACH. SIGNIFICANT OTHER ON COUCH.
--- NOTE | 2022-08-21 07:45 | NUR ---
RECIEVED SHIFT REPORT. PT IN RESTROOM. DENIES FURTHER NEEDS. CALL LIGHT WITHIN REACH
--- NOTE | 2022-08-21 09:13 | NUR ---
PATIENT REPORTED NAUSEA THIS MORNING DURING VITALS CHECK. CBG 123 AND VITALS ALL WNL. ZOFRAN 4MG/2ML ADMINISTERED AND NAUSEA RESOLVED. PATIENT ATE HER BREAKFAST AND IS NOW SLEEPING.
--- NOTE | 2022-08-21 10:20 | NUR ---
PATIENT JUST RETURNED TO ROOM AFTER WALK. STUDENT NURSE (SANGEETHA) AND PATIENT WALKED 2 BRISK LAPS AROUND MED SURG UNIT. PATIENT REPORTED TINGLING AND NUMBNESS TO BILATERAL LEGS BUT WAS WILLING TO COMPLETE THE SECOND LAP. PATIENT RESTING IN BED NOW.
--- NOTE | 2022-08-21 10:51 | NUR ---
MORNING ASSESSMENT COMPLETE. PT RESTING IN BED, AWAKE. DENIES PAIN. BEEN AMBULATING HALLS W/O DIFFICULTY. PT SHOWERED. DENIES FURTHER NEEDS. CALL LIGHT WITHIN REACH
[2022-08-21] MEDS ORDERED: LO-DOSE ASPIRIN81 MG PO (11:59)
[2022-08-21] MEDS ORDERED: METOPROLOL SUCC25 MG PO (11:59)
[2022-08-21] MEDS ORDERED: LIPITOR10 MG PO (11:59)
[2022-08-21] MEDS ORDERED: TORSEMIDE20 MG PO (11:59)
[2022-08-21] MEDS ORDERED: BENZONATATE100 MG PO (12:00)
[2022-08-21] MEDS ORDERED: LANTUS100 UNITS/ SUB-Q (12:00)
[2022-08-21] MEDS ORDERED: OMEPRAZOLE20 MG PO (12:00)
[2022-08-21] MEDS ORDERED: INSULIN SYRING1 EA30 MISC (12:04)
[2022-08-21] MEDS ORDERED: HUMALOG100 UNITS/ SUB-Q (12:31)
[2022-08-21] MEDS ORDERED: INSULIN PEN NE1 EAC2 MISC (12:34)
--- NOTE | 2022-08-21 17:39 | EKG ---
[facility] [address] [place] [address] Signed Sinus tachycardia Left axis deviation Septal infarct , age undetermined Abnormal ECG When compared with ECG of 14-JUL-2022 02:09, Nonspecific T wave abnormality now evident in Lateral leads Confirmed by RUBIN PERES MD ([id number]) on 08/21/2022 5:39:34 PM Electronically Signed By: RUBIN PERES MD 08/21/22 1739 PATIENT NAME: MIKE GLASGOW Electrocardiogram DATE OF : 80 PHYSICIAN: RUBIN PERES MD REPORT #: [id number] REPORT IS CONFIDENTIAL AND NOT TO BE RELEASED WITHOUT AUTHORIZATION
== END 2022-08-21 13:10 | disposition home or self-care (01) | DRG 292 ==
LOC: ED 09:45 → MS 12:49
PROVIDERS: ADMIT Family Medicine; ATTEND Internal Medicine
DX: I50.23 Acute on chronic systolic (congestive) heart failure (principal); J91.8 Pleural effusion in other conditions classified elsewhere; Z20.822 Contact with and (suspected) exposure to COVID-19; N18.32 Chronic kidney disease, stage 3b; E11.22 Type 2 diabetes mellitus with diabetic chronic kidney disease; K76.1 Chronic passive congestion of liver; D63.1 Anemia in chronic kidney disease; E78.5 Hyperlipidemia, unspecified; F90.9 Attention-deficit hyperactivity disorder, unspecified type; E11.65 Type 2 diabetes mellitus with hyperglycemia; F15.10 Other stimulant abuse, uncomplicated; Z91.14 Patient's other noncompliance with medication regimen; Z90.49 Acquired absence of other specified parts of digestive tract; Z90.89 Acquired absence of other organs; Z88.2 Allergy status to sulfonamides; Z88.6 Allergy status to analgesic agent; Z91.040 Latex allergy status; Z91.048 Other nonmedicinal substance allergy status; Z79.4 Long term (current) use of insulin; Z79.899 Other long term (current) drug therapy
CPT/HCPCS: 36415; 71045; 80048; 80053; 80076; 81001; 82306; 83036; 83735; 83880; 84703; 85025; 86704; 86803; 87502; 93005; 93010; 93306; 94640; 94664; 94760; 94762; A9270; C9803; J1650; J1815; J1940; J2405; J3475; U0003

== ENCOUNTER 2022-08-24 | Emergency (ER) | payer MEDICAID ==
[~2022-08-24] VITALS: Ht 162.6 cm; Wt 72.8 kg
[~2022-08-24] MED LIST changes: +INSULIN PEN NE1 EAC2 MISC; +INSULIN SYRING1 EA30 MISC; +METOPROLOL SUCC25 MG PO; +TORSEMIDE20 MG PO
--- OUTSIDE RECORDS SUMMARY | 2022-08-24 00:08 | XMS ---
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 - Patient with suicidal and/or homicidal ideations eloped. - Patient eloped with IV in place. Details: PATIENT LEFT AMA CRITERIA MET - - 3 Facilities in 90 Days - - 2 Visits in 30 Days - - Has Care Guidelines - 6 ED Visits in 6 Months CARE PROVIDERS ABEL TANG Physician Program Clinician: Medical Current PHONE: Unknown MORENA YUN [facility] Current PHONE: Unknown Guidelines Source: [facility] Guidelines Date: 06/19/2022 Care Recommendation: -Provide patient [...] Care History Substance Use/Overdose 06/19/2022 [facility] Uses methamphetamines. 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 E.D. VISIT COUNT (12 MO.) 4 [facility] 18 [facility] 1 [facility] 7 [facility]. TOTAL 30 NOTE: Visits indicate total known visits. ED/UCC VISIT TRACKING (12 MO.) 08/24/2022 00:02 [facility] [place] TYPE: Emergency COMPLAINT: - LEGS ARE SWELLING SOB 08/18/2022 09:47 [facility] [place] TYPE: Emergency COMPLAINT: - ABD PAIN, L FLANK PAIN, SORE THROAT, SOB, HEADACHE 07/14/2022 01:48 [facility] [place] TYPE: Emergency COMPLAINT: - COUGH DIAGNOSES: - Latex allergy status - Allergy status to narcotic agent - Other senior care (current) drug therapy - [facility] (current) use of aspirin - [facility] (current) use of insulin - Type 2 diabetes mellitus without complications - Other stimulant abuse, uncomplicated - Allergy status to sulfonamides - Influenza due to other identified influenza virus with other respiratory manifestations - Allergy status to other drugs, medicaments and biological substances - Other nonmedicinal substance allergy status - Contact with and (suspected) exposure to COVID-19 - Cough, unspecified 07[facility]22 [facility] DIAGNOSES: - Tubulo-interstitial nephritis, not specified as acute or chronic - Emesis - Tachycardia, unspecified - Abdominal Pain - Epigastric pain - n/v 06/16/2022 21:02 [facility] [place] TYPE: Emergency COMPLAINT: - SWALLOW PROBLEM, FLANK PAIN, DIZZYNESS DIAGNOSES: - Vomiting, unspecified - Type 2 diabetes mellitus with diabetic chronic kidney disease - Allergy status to narcotic agent - Acute kidney failure, unspecified - Chronic kidney disease, unspecified - Allergy status to sulfonamides - Hypomagnesemia - Other senior care (current) drug therapy - [facility] (current) use of aspirin - Contact with and (suspected) exposure to COVID-19 - intermodal truck driver (current) use of insulin 06/15/2022 16:03 [facility] [place] TYPE: Emergency COMPLAINT: - ABD PAIN, VOMITING, SHARP PAIN IN STERNUM 06/12/2022 20:24 [facility] TYPE: Emergency DIAGNOSES: - Emesis - Vomiting; Abdominal Pain 06/11/2022 09:18 [facility] [place] TYPE: Emergency DIAGNOSES: - vomitting - Upper abdominal pain, unspecified - Nausea with vomiting, unspecified - Vomiting (Severe) 06/10/2022 04:12 [facility] Diegoes [facility] TYPE: Emergency DIAGNOSES: - Nausea with vomiting, unspecified - Generalized abdominal pain - Vomitting, abdominal pain 05/30/2022 23:50 [facility] [place] TYPE: Emergency DIAGNOSES: - Facial swelling - Cellulitis, unspecified - Wound Check 04/16/2022 04:06 [facility] [place] TYPE: Emergency DIAGNOSES: - Syncope - chin, knee, abdominal pain - Syncope and collapse 04/15/2022 09:45 [facility] [place] TYPE: Emergency DIAGNOSES: - Trichomoniasis, unspecified - Hyperglycemia, unspecified - Type 2 diabetes mellitus with hyperglycemia - stomach pain,fever - Nausea with vomiting, unspecified - Emesis - [facility]CI (current) use of insulin - Epigastric pain 04/13/2022 17:20 Machel[facility] Hopkins [facility] TYPE: Emergency DIAGNOSES: - Leg Swelling - Type 2 diabetes mellitus with diabetic chronic kidney disease - Chronic kidney disease, unspecified - Other specified abnormal findings of blood chemistry - Type 2 diabetes mellitus with hyperglycemia - Other specified soft tissue disorders - Localized edema - intermodal truck driver (current) use of insulin - Other specified diabetes mellitus with hyperglycemia 03/30/2022 07:10 [facility] [place] TYPE: Emergency DIAGNOSES: - Other acute postprocedural pain - Pain, unspecified - post surgery pain - Wound - Pilonidal cyst with abscess - Other injury of unspecified body region, initial encounter 03/29/2022 15:38 [facility] [place] TYPE: Emergency DIAGNOSES: - Abscess - Leg Edema - Pilonidal cyst with abscess 03/28/2022 19:00 [facility] [place] TYPE: Emergency DIAGNOSES: - Sore - Abscess 02/20/2022 15:30 [facility] [place] TYPE: Emergency DIAGNOSES: - Tachycardia, unspecified - Duodenitis without bleeding - Other specified noninflammatory disorders of uterus - Other specified disease of esophagus - Emesis - Vomitting 02/15/2022 15:38 [facility] [place] TYPE: Emergency DIAGNOSES: - Constipation, unspecified - Nausea, Vomiting - Nausea with vomiting, unspecified - Hyperglycemia, unspecified - Emesis 02/14/2022 12:18 [facility] [place] TYPE: Emergency DIAGNOSES: - Wound check;Vomitting;Constipated 02/13/2022 06:26 [facility] [place] TYPE: Emergency DIAGNOSES: - Emesis - Hyperglycemia, unspecified - Nausea with vomiting, unspecified - Vomiting - Constipation, unspecified Plus 10 More Visits INPATIENT VISIT TRACKING (12 MO.) 08/18/2022 12:49 [facility] TYPE: Medical Surgical COMPLAINT: - PULMONARY EDEMA DIAGNOSES: - Hyperlipidemia, unspecified - Acute pulmonary edema - Other supervisor intermediates (current) drug therapy - Anemia in chronic kidney disease - Chronic kidney disease, stage 3b - Other stimulant abuse, uncomplicated - Contact with and (suspected) exposure to COVID-19 - Other nonmedicinal substance allergy status - Type 2 diabetes mellitus with diabetic chronic kidney disease - Attention-deficit hyperactivity disorder, unspecified type - Latex allergy status - Acquired absence of other specified parts of digestive tract - Type 2 diabetes mellitus with hyperglycemia - Patient's other noncompliance with medication regimen - Chronic passive congestion of liver - Acute on chronic systolic (congestive) heart failure - Allergy status to analgesic agent - Pleural effusion in other conditions classified elsewhere - FCI (current) use of insulin - Allergy status to sulfonamides - Acquired absence of other organs 10/02/2021 17:16 [facility] [place] TYPE: Medical Surgical DIAGNOSES: - Urinary tract infection, site not specified - Cutaneous abscess, unspecified - Candidiasis, unspecified - Cellulitis, unspecified - Hyperglycemia, unspecified - Sepsis, unspecified organism - Dysuria [email or web address]
--- NOTE | 2022-08-24 07:18 | EKG ---
[facility] [address] [place], [place] [address] Signed Sinus tachycardia Left axis deviation Abnormal ECG When compared with ECG of 18-AUG-2022 12:40, No significant change was found Confirmed by JESSICA DUNN MD ([id number]) on 08/24/2022 7:17:54 AM Electronically Signed By: JESSICA DUNN MD 08/24/22 0718 PATIENT NAME: MIKE GLASGOW Electrocardiogram DATE OF : 80 PHYSICIAN: JESSICA DUNN MD REPORT #: [id number] REPORT IS CONFIDENTIAL AND NOT TO BE RELEASED WITHOUT AUTHORIZATION
== END 2022-08-24 01:28 | disposition home or self-care (01) ==
LOC: ED
DX: I50.9 Heart failure, unspecified (principal); F15.10 Other stimulant abuse, uncomplicated; Z91.199 Patient's noncompliance with other medical treatment and regimen due to unspecified reason; E11.9 Type 2 diabetes mellitus without complications; Z88.2 Allergy status to sulfonamides; Z88.8 Allergy status to other drugs, medicaments and biological substances; Z88.5 Allergy status to narcotic agent; Z91.048 Other nonmedicinal substance allergy status; Z88.1 Allergy status to other antibiotic agents; Z79.899 Other long term (current) drug therapy; Z79.82 Long term (current) use of aspirin; Z79.4 Long term (current) use of insulin
CPT/HCPCS: 36415; 71045; 80053; 81001; 83880; 84703; 85025; 93005; 93010; 96374; 99285-25; J1940

== ENCOUNTER 2022-08-28 00:05 | Inpatient (IN) | payer MEDICAID ==
[~2022-08-28] VITALS: Ht 162.6 cm; Wt 69.8 kg
--- OUTSIDE RECORDS SUMMARY | 2022-08-28 00:12 | XMS ---
PreManage Notification: MIKE GLASGOW Security Residential Team Leader Events 1 event(s) in the past 18 months Most recent security events: Elopement at [facility] 10/19/2021 09:46 - Patient eloped before treatment completed. - Patient with suicidal and/or homicidal ideations eloped. - Patient eloped with IV in place. Details: PATIENT LEFT AMA CRITERIA MET - 6 ED Visits in 6 Months - [facility] - 2 Visits in 30 Days - [facility] - Has Care Guidelines - [facility] - 3 Facilities in 90 Days CARE PROVIDERS ABEL TANG Physician Iron Bender: Medical Current PHONE: Unknown MORENA YUN [facility] Current PHONE: Unknown Guidelines Source: [facility] Guidelines Date: 06/19/2022 Care Recommendation: -Provide [...] use \T\nbsp; Care History Substance Use/Overdose 06/19/2022 [facility] Uses methamphetamines. 06/19/2022 [facility] The patient is a pleasant 41-year-old female with past medical history of insulin-dependent diabetes mellitus, related diabetic nephropathy with stage IV chronic kidney disease, dyslipidemia, returning to the ER for the second time in as many days for evaluation of intractable nausea vomiting and generalized abdominal pain. E.D. VISIT COUNT (12 MO.) 4 [facility] 18 [facility] 1 [facility] 8 [facility] TOTAL 31 NOTE: Visits indicate total known visits. ED/UCC VISIT TRACKING (12 MO.) 08/28/2022 00:06 [facility] [place] TYPE: Emergency COMPLAINT: - ABD PAIN,KIDNEY PAIN,SOB 08/24/2022 00:02 [facility] [place] [place] TYPE: Emergency COMPLAINT: - LEGS ARE SWELLING SOB DIAGNOSES: - Allergy status to other drugs, medicaments and biological substances - Other oysterman (current) drug therapy - Shortness of breath - Other nonmedicinal substance allergy status - Other stimulant abuse, uncomplicated - residential (current) use of insulin - Allergy status to narcotic agent - residential (current) use of aspirin - Allergy status to sulfonamides - Heart failure, unspecified - Patient's noncompliance with other medical treatment and regimen due to unspecified reason - Allergy status to other antibiotic agents - Type 2 diabetes mellitus without complications 08/18/2022 09:47 [facility] [place] TYPE: Emergency COMPLAINT: - ABD PAIN, L FLANK PAIN, SORE THROAT, SOB, HEADACHE 07/14/2022 01:48 [facility] [place] [place] TYPE: Emergency COMPLAINT: - COUGH DIAGNOSES: - Allergy status to other drugs, medicaments and biological substances - Other nonmedicinal substance allergy status - Contact with and (suspected) exposure to COVID-19 - Cough, unspecified - Latex allergy status - Allergy status to narcotic agent - Other oysterman (current) drug therapy - residential (current) use of aspirin - watermelon harvesting supervisor (current) use of insulin - Type 2 diabetes mellitus without complications - Other stimulant abuse, uncomplicated - Allergy status to sulfonamides - Influenza due to other identified influenza virus with other respiratory manifestations 07/09/2022 15:05 [facility] TYPE: Emergency DIAGNOSES: - n/v - Tubulo-interstitial nephritis, not specified as acute or chronic - Emesis - Tachycardia, unspecified - Abdominal Pain - Epigastric pain 06/16/2022 21:02 [facility] [place] [place] TYPE: Emergency COMPLAINT: - SWALLOW PROBLEM, FLANK PAIN, DIZZYNESS DIAGNOSES: - watermelon harvesting supervisor (current) use of aspirin - Contact with and (suspected) exposure to COVID-19 - residential (current) use of insulin - Vomiting, unspecified - Type 2 diabetes mellitus with diabetic chronic kidney disease - Allergy status to narcotic agent - Acute kidney failure, unspecified - Chronic kidney disease, unspecified - Allergy status to sulfonamides - Hypomagnesemia - Other oysterman (current) drug therapy 06/15/2022 16:03 [facility] TYPE: Emergency COMPLAINT: - ABD PAIN, VOMITING, SHARP PAIN IN STERNUM 06/12/2022 20:24 [facility] TYPE: Emergency DIAGNOSES: - Emesis - Vomiting; Abdominal Pain 06/11/2022 09:18 [facility] TYPE: Emergency DIAGNOSES: - vomitting - Upper abdominal pain, unspecified - Nausea with vomiting, unspecified - Vomiting (Severe) 06/10/2022 04:12 [facility] TYPE: Emergency DIAGNOSES: - Nausea with vomiting, unspecified - Generalized abdominal pain - Vomitting, abdominal pain 05/30/2022 23:50 Uats[facility] H. [facility] TYPE: Emergency DIAGNOSES: - Facial swelling - Cellulitis, unspecified - Wound Check 04/16/2022 04:06 Machelle [facility] TYPE: Emergency DIAGNOSES: - Syncope - chin, knee, abdominal pain - Syncope and collapse 04/15/2022 09:45 Uatsdin Asher [facility] TYPE: Emergency DIAGNOSES: - watermelon harvesting supervisor (current) use of insulin - Epigastric pain - Trichomoniasis, unspecified - Hyperglycemia, unspecified - Type 2 diabetes mellitus with hyperglycemia - stomach pain,fever - Nausea with vomiting, unspecified - Emesis 04/13/2022 17:20 [facility] [place] TYPE: Emergency DIAGNOSES: - Localized edema - residential (current) use of insulin - Other specified diabetes mellitus with hyperglycemia - Leg Swelling - Type 2 diabetes mellitus with diabetic chronic kidney disease - Chronic kidney disease, unspecified - Other specified abnormal findings of blood chemistry - Type 2 diabetes mellitus with hyperglycemia - Other specified soft tissue disorders 03/30/2022 07:10 [facility] [place] [facility] TYPE: Emergency DIAGNOSES: - Other injury of unspecified body region, initial encounter - Other acute postprocedural pain - Pain, unspecified - post surgery pain - Wound - Pilonidal cyst with abscess 03/29/2022 15:38 U[facility]inkyle [place] TYPE: Emergency DIAGNOSES: - Abscess - Leg Edema - Pilonidal cyst with abscess 03/28/2022 19:00 Uatsdin H. [facility] TYPE: Emergency DIAGNOSES: - Sore - Abscess 02/20/2022 15:30 Uatsdinoz Hopkins [facility] TYPE: Emergency DIAGNOSES: - Vomitting - Tachycardia, unspecified - Duodenitis without bleeding - Other specified noninflammatory disorders of uterus - Other specified disease of esophagus - Emesis 02/15/2022 15:38 Machelle [facility] TYPE: Emergency DIAGNOSES: - Emesis - Constipation, unspecified - Nausea, Vomiting - Nausea with vomiting, unspecified - Hyperglycemia, unspecified 02/14/2022 12:18 Uatsdinoz [facility] TYPE: Emergency DIAGNOSES: - Wound check;Vomitting;Constipated Plus 11 More Visits INPATIENT VISIT TRACKING (12 MO.) 08/18/2022 12:[address] [facility] [place] TYPE: Medical Surgical COMPLAINT: - PULMONARY EDEMA DIAGNOSES: - Other stimulant abuse, uncomplicated - Allergy status to sulfonamides - Latex allergy status - Allergy status to analgesic agent - Other nonmedicinal substance allergy status - Acquired absence of other organs - Type 2 diabetes mellitus with diabetic chronic kidney disease - Latex allergy status - residential (current) use of insulin - Type 2 diabetes mellitus with diabetic chronic kidney disease - Type 2 diabetes mellitus with hyperglycemia - Chronic passive congestion of liver - Patient's other noncompliance with medication regimen - Attention-deficit hyperactivity disorder, unspecified type - Anemia in chronic kidney disease - Chronic kidney disease, stage 3b - Allergy status to analgesic agent - Acute on chronic systolic (congestive) heart failure - Contact with and (suspected) exposure to COVID-19 - Acquired absence of other specified parts of digestive tract - Attention-deficit hyperactivity disorder, unspecified type - Patient's other noncompliance with medication regimen - Contact with and (suspected) exposure to COVID-19 - residential (current) use of insulin - Acquired absence of other specified parts of digestive tract - Allergy status to sulfonamides - Other nonmedicinal substance allergy status - Pleural effusion in other conditions classified elsewhere - Hyperlipidemia, unspecified - Other prison (current) drug therapy - Acute pulmonary edema - Chronic passive congestion of liver - Acute on chronic systolic (congestive) heart failure - Type 2 diabetes mellitus with hyperglycemia - Other oysterman (current) drug therapy - Chronic kidney disease, stage 3b - Hyperlipidemia, unspecified - Acquired absence of other organs - Anemia in chronic kidney disease - Other stimulant abuse, uncomplicated - Pleural effusion in other conditions classified elsewhere 10/02/2021 17:16 [facility] [place] TYPE: Medical Surgical DIAGNOSES: - Sepsis, unspecified organism - Dysuria - Urinary tract infection, site not specified - Cutaneous abscess, unspecified - Candidiasis, unspecified - Cellulitis, unspecified - Hyperglycemia, unspecified [email or web address]
--- NOTE | 2022-08-28 04:05 | NUR ---
RECEIVED BEDSIDE REPORT FROM ER NURSE JEAN, COMPLETED 2 RN SKIN ASSESSMENT, TRANSPORTED TO MED SURG.
--- NOTE | 2022-08-28 06:17 | NUR ---
IN PT ROOM FOR ROUNDING. PT ON TELEMETRY, SLEEPING WIHT HOB ELEVATED. PT HAS NC IN PLACE AT 2 LPM. PT FAMILY AT BEDSIDE, NO COMPLAINT OF PAIN, CALL LIGHT IN REACH.
--- NOTE | 2022-08-28 06:51 | NUR ---
CONTACTED DR DUNN REGARDING PT RR MAINTAINING BETWEEN 28-[address] DUNN ACKNOWLEDGED AND SAID SHE WOULD CONTINUE TO MONITOR WITH NO NEW ORDERS AT THIS TIME.
--- NOTE | 2022-08-28 07:10 | NUR ---
RECEIVED REPORT FROM LILIANA CARTER. ASSUMING CARE OF PT. PT RESTING IN BED WITH EYES CLOSED, RESPIRATIONS EVEN AND UNLABORED. CALL LIGHT WITHIN REACH AND BEDRAIL UP FOR SAFETY. SIGNIFICANT OTHER SUMAYA ASLEEP ON COUCH.
--- NOTE | 2022-08-28 08:45 | NUR ---
PT CALLED FOR ASSISTANCE TO THE RESTROOM. PT WAS ABLE TO AMBULATE TO THE RESTROOM. PT WAS STEADY ON FEET NANETTE LOPEZ A HARD TIME SEEING SHE IS SLIGHTLY BLIND. PT PERFORMED OWN STEVEN CARE. LINENS WERE CHANGED, PT BACK INTO BED SET UP FOR BREAKFAST. S/O REQUESTED COFFEE. TOOK OT JUICE CBG OF 86. CALL LIGHT IN REACH, NO OTHER REQUESTS
--- NOTE | 2022-08-28 09:46 | NUR ---
PT BP 88/56 WITH MANUAL BP AFTER TAKING IT TWICE WITH MACHINE. TASNEEM HELD AND DR DUNN INFORMED. NO ADDITIONAL ORDERS AT THIS TIME.
--- NOTE | 2022-08-28 10:19 | NUR ---
MED REC COMPLETE
--- NOTE | 2022-08-28 11:10 | NUR ---
notified of pt's current bp of 84/48 (56), hr 90's. no further orders obtained at this time, will continue to monitor. primary rn aware.
--- NOTE | 2022-08-28 11:48 | NUR ---
PT CALLED TO ASK FOR MORE TYLENOL DUE TO HER HEADACHE. RELAYED TO RN, THIS SENIOR CONTRACTS ADMINISTRATOR GOT PT A HEAT PACK FOR HER NECK. RN WENT IN TO ROOM TO SPEAK WITH PT.
--- NOTE | 2022-08-28 11:51 | NUR ---
PT COMPLAINT OF TENSION HEADACHE, REQUESTING ADDITIONAL TYLENOL. PT INFORMED OF WAIT FOR NEXT DOSAGE. HEAT PACK PROVIDED TO PT FOR NECK. PT REQUESTING NAUSEA MEDICATION. PT BP AT THIS TIME 88/52. PT HEAD LOWERED SLIGHTLY. MD AWARE OF CONTINUED LOW BP.
--- NOTE | 2022-08-28 12:12 | NUR ---
PT LAYING IN BED-HEAD ELEVATED AND PT IS MOANING.SAID HER HEAD AND FEET HURT. GAVE COMFORT, INFORMED MISSILE MECHANIC JESSICA. SHE WILL FOLLOW. PT SEEMS VERY CONSUMED WITH HER DISCOMFORT. GAVE G.POST-PT SAID SHE IS BLIND AND CAN'T SEE. WILL FOLLOW
--- NOTE | 2022-08-28 15:30 | NUR ---
DR TAVAREZ CALLED AND UPDATED ON PT STATUS. PT HAS CRACKLES IN LOWER LOBES OF LUNGS, PITTING EDEMA NOTED IN LOWER EXTREMITIES BILATERALLY. PT HAS RECEIVED TWO DOSES OF 40MG LASIX WITH LOW URINE OUTPUT OF 50ML IN THE LAST SEVEN HOURS WITH BLADDER SCANNER SHOWING 90ML IN BLADDER. PT HAS LOWER BP IN THE 80S SYSTOLICALLY AND SYMPTOMATIC WITH COMPLAINT OF DIZZINESS, HEADACHE, AND FATIQUE. DR TAVAREZ ORDERING ALBUMIN TO BE GIVEN AND HAVE PT BP RECHECKED THIRTY MINUTES TO ONE HOUR AFTER INFUSION COMPLETE.
--- NOTE | 2022-08-28 16:15 | NUR ---
PT ASSISTED TO BATHROOM TO VOID AND BACK TO BED. PT TOLERATED OKAY, COMPLAINT OF DIZZINESS. PT RESTING IN BED WITH BLANKET COVERING HER. PT HAS FINE CRACKLES NOTED IN LOWER LUNGS AND EDEMA IN LOWER EXTREMITIES. PT DENIES SHORTNESS OF BREATH AT THIS TIME.
--- NOTE | 2022-08-28 16:40 | NUR ---
Spoke with Alexander Azul, and his daughter. Pt states they cont. to stay at [employer] on coupons from the [employer] until the end of the month. Plan is to go [facility] [place] [facility] when coupons [place]. Pt has [place] Medicaid and her pcp is in [place]. I asked why they don't return to [place], Alexander states his father will not Latha back in his home. We discussed she has sisters in [place], they are just unsure where they will go when their motel runs out. Alexander has a car and money from [employer]. They were able to drive to [place] to pickling solution maker Latha's routine meds at last discharge. She does states she was upset as she only likes insulin pens, and her insurance filled bottles of insulin with syringes. We then discussed her meth use and she again is stating she has no interest is stopping. Alexander cries and states he has tried to help her stop. Pt does not want to speak with CESAR, states she hasn't used in 4 days. Received call from admitting.Notification from her insurance,will not pay OBS past 48 hrs, they must be notified within 24 hrs if pt is made an IP or they will not pay. Dr. Hussein updated.
--- NOTE | 2022-08-28 16:51 | NUR ---
PT GIVEN EVENING MEDICATION. PT ALBUMIN FINISHED. SIGNIFICANT OTHER AND DAUGHTER AT PT BEDSIDE. PT MORE ALERT AND RESPONDING TO QUESTIONS. PT INFORMED OF WAIT FOR BP THIRTY MINUTES TO ONE HOUR POST ALBUMIN INFUSION. PT DENIES NEEDS AT THIS TIME.
--- NOTE | 2022-08-28 18:11 | NUR ---
PT ADMITTED THIS AM FOR CHF EXACERBATION AND PNEUMONIA. PT IS ON CPOX AND TELEMETRY. DURING THE DAY PT HAS HAD A DECREASE IN URINE WITH OUTPUT 450ML IN THE LAST TWELVE HOURS. PT BP IS BEEN LOW IN THE 80S SYSTOLICALLY THROUGHOUT THE DAY. AFTER RECEIVING ORDER FOR ALBUMIN, PT LAST BP WAS 103/64. PT DENIES DIZZINESS AT THIS TIME. PT HAD A REPEAT MAGNESIUM LAB DRAWN THIS AFTERNOON WHICH WAS CRITICALLY LOW. DR DUNN INFORMED AND 4GM IV MAG ORDERED AND GIVEN. PT HAS BEEN ON ROOM AIR DURING THE DAY. LUNG SOUNDS DIMINISHED. BOWEL TONES ACTIVE, HEART SOUNDS STRONG. PT COMPLAINT OF PAIN ABOVE IV SITE BUT UPON ASSESSMENT IV IS WNL AND FLUSHES WELL.
--- NOTE | 2022-08-28 19:24 | NUR ---
PT SLEEPY, BUT AROUSABLE, WITHOUT REQUEST, BEDSIDE REPORT RECEIVED FROM KELLY CARTER, PT'S RESP EVEN AND REG, WITHOUT DISTRESS, COLOR PALE PINK. ENCOURAGED TO CALL RN FOR ASSIST.
--- NOTE | 2022-08-28 20:00 | NUR ---
IN TO TURN OF LIGHTS FOR PT, NO FURHTER NEEDS AT THIS TIME
--- NOTE | 2022-08-28 21:40 | NUR ---
TC TO DR TAVAREZ, UPDATED ON CONTINUED LOWER BP AND BREATH SOUNDS (WITH CRACKLES RIGHT LOWER LOBE), STATES HE WILL ORDER MORE ALBUMIN.
--- NOTE | 2022-08-28 21:49 | NUR ---
IN ROOM TO GIVE SCHEDULED EVENING MEDS FOR PRIMARY RN. pt AWAKE AND INTERACTIVE WITH RN, REPORTS EDEMA IN BLE. pt EDUCATED TO ELEVATE BLE IN BED TO HELP EASE EDEMA. pt STATES, "OH I CAN'T DO THAT BECAUSE THEN IT HURTS MY KIDNEYS". SANDWHICH BOX PROVIDED BY COFFEE BREWER, pt STATES WHILE EATING AFTER RECEIVING HER INSULIN, "YEAH, THE SUGAR FREE JELLO PROBABLY RAISED IT. IT LOWERS IT FOR OTHER PEOPLE BUT SUGAR FREE STUFF MAKES MINE GO HIGHER". pt EDUCATED ON INSULIN. PRN TYLENOL AND COUGH DECONGESTION ALSO PROVIDED PER REQUEST. IV SITE WNL, IV ABX INFUSING DIRECTED. PRIMARY RN DAYLIN AWARE OF SOFT BP AND TO DISCUSS WITH MD. CALL LIGHT IN REACH, NO ADDITIONAL NEEDS VERBALIZED. WILL MONITOR.
--- NOTE | 2022-08-28 22:24 | NUR ---
CALL LIGHT ANSWERED, PER pt IV SITE IS "BURNING ALL AROUND MY WRIST AND I FEEL LIKE I'M BURNING UP". SPO2 WNL, LOW 90'S ON RA. THERAPEUTIC COMMUNICATION PROVIDED. BRISK BLOOD RETURN NOTED TO IV SITE, NO REDDNESS OR SWELLING OR SIGNS OF INFILITRATION NOTED. IV ABX PAUSED. TEMP TAKEN AND RESULT 97.8. COOL RAG APPLIED TO FOREHEAD AND LEFT ARM FOR COMFORT. pt APPEARS ANXIOUS AND UNABLE TO SETTLE pt DOWN. DEEP BREATHING EXERCISES EDUCATED TO pt. DR CORBY MOREIRA MD TO PLACE ORDER FOR ATIVAN.
--- NOTE | 2022-08-28 23:05 | NUR ---
CALL MADE TO PRIMARY CARE NURSE REGARDING NEW ORDER FOR ALBUMIN, PRIMARY CARE NURSE TO RETRIEVE FROM PHARMACY.
--- NOTE | 2022-08-28 23:39 | NUR ---
NEW IV STARTED BY EMMA JENKINS, REMAINING IV ABX INFUSING. NEW IV SITE TO RIGHT AC WNL, BRISK BLOOD RETURN NOTED. pt ASKING FOR HER "SEROTONIN", pt REFERRING TO HER PRN SLEEP AID MELATONIN. ALSO ASKING FOR SOMETHING FOR HER NAUSEA, PRIMARY RN DAYLIN TO JENNA. pt LEFT RESTING IN BED WITH EYES CLOSED, RR EVEN AND UNLABORED. CALL LIGHT IN REACH.
--- NOTE | 2022-08-29 00:05 | NUR ---
PT MOANING, C/O BEING HOT, DESIRES TO GET UP TO BSC, NURSE ASSIST, PT FEELS SWEATY, LINEN AND GOWN CHANGED, SPOT ACCUCHECK 240, SKIN COOL AND MOIST, COOL CLOTH TO BACK TO WASH PER PT REQUEST.
--- NOTE | 2022-08-29 00:05 | NUR ---
CORRECTION FOR NOTE MADE AT THIS TIME, PT'S ACCUCHECK WAS 245 AT THIS TIME.
--- NOTE | 2022-08-29 00:40 | NUR ---
PT MEDICATED WITH MELATONIN 6 MG PER HER REQUEST.
--- NOTE | 2022-08-29 00:45 | NUR ---
ALBUMIN 25% STARTED PER PUMP AT 120ML/HR TOTAL TO BE INFUSED 100ML, RATE PER TELEPHARMACY'S RECOMMENDATION. IV SITE PATENT.
--- NOTE | 2022-08-29 00:50 | NUR ---
PT DESIRES TO GO TO BSC, 1 PERSON ASSIST, UNABLE TO VOID, ASSISTED BACK TO BED, DROWSY, BREATH SOUNDS CLEAR, SATS 91%, RESP RATE 28, BLANKETS GIVEN PER REQUEST, HEAD OF BED LOWERED SLIGHTLY. PT RESTING WITH EYES CLOSED.
--- NOTE | 2022-08-29 01:24 | NUR ---
SIGN OTHER JANIE INTO SEE PATIENT, UPDATE GIVEN, JANIE ASKING APPROPRIATE QUESTIONS CONCERNING CARE.
--- NOTE | 2022-08-29 01:35 | NUR ---
IV PUMP ALARMING, IV ALBUMIN COMPLETE. IV SITE WNL. SO SUMAYA AT RN STATION AND THEN WENT INTO ROOM TO SIT WITH pt. SO SUMAYA THEN GOES AND WAKES UP pt AND ASKS HER QUESTIONS SUCH "DO YOU WANT SOME WATER" AND "ARE YOU DOING OKAY". DISCUSSED WITH SO SUMAYA TO ENCOURAGE THE pt TO REST pt HAS BEEN ANXIOUS AND NOT SLEPT WELL THUS FAR. SO SUMAYA SITTING ON EDGE OF BED AND EMOTIONAL AT TIMES REGARDING pt CONDITION AND DIAGNOSIS. THERAPEUTIC COMMUNICATION PROVIDED. WILL MONITOR. PRIMARY RN DAYLIN UPDATED.
--- NOTE | 2022-08-29 02:09 | NUR ---
SIGN OTHER TO NURSES DESK, CONCERNED THAT PT IS "INCORHERANT", REASSURED SIGN OTHER THAT THE ATIVAN GIVEN EARILIER FOR ANXIETY CAUSES DROWSINESS AND THAT SHE NEEDS TO BE ALLOWED TO SLEEP, WHEN VS DONE PT AWAKENS EASILY.
--- NOTE | 2022-08-29 02:12 | NUR ---
SIGN LEFT UNIT TO GO OUTSIDE, STATING HE NEEDS TO CALL HER FAMILY BECAUSE HE FEELS PATIENT'S CONDITION HAS CHANGED, ATTEMPTS MADE TO REASSURE SIGN OTHER THAT PT IS STABLE AT THIS TIME AND NEEDS TO REST ARE UNSUCESSFUL. INTERNAL AUDIT MANAGER NOTIFIED BY CHARGE NURSE.
--- NOTE | 2022-08-29 02:18 | NUR ---
CPOX ALARMING, SPO2 LOW TO MID 80'S ON RA. 2LNC PLACED, SPO2 NOW SUSTAINING IN THE 90'S. BED ALARM ON AND CALL LIGHT IN REACH.
--- NOTE | 2022-08-29 04:27 | NUR ---
TC TO DR TAVAREZ TO REPORT ONLY 100ML OF URINE THIS SHIFT, WITH LAST VOID AT 2100, BLADDER SCAN 179ML AND WT UP APPROX 1 KG, REPORTED CLEAR BUT DIM BS AND +1 PEDAL EDEMA BILATERALLY, MD STATES TO WAIT AT THIS TIME, MAY NEED TO STRAIGHT CATH LATER PRN. CHARGE NURSE UPDATED.
--- NOTE | 2022-08-29 05:30 | NUR ---
PT ASLEEP, NOTED OXYGEN WAS OFF, OXYGEN REPLACED, PT AWAKENS BRIEFLY, NO COMPLAINTS, SAT PLUGGED IN, NOTED URINE 50ML IN BSC, REPORT RECEIVED THAT PT WAS ASSISTED UP TO BSC TO VOID EARILIER. SIGN OTHER REMAINS AT BEDSIDE.
--- NOTE | 2022-08-29 06:40 | NUR ---
PT ASLEEP, RESP EVEN REG, AWAKEN BRIEFLY TO REPLACE TELE BATTERY
--- NOTE | 2022-08-29 07:24 | NUR ---
REPORT RECEIVED FROM DAYLIN CARTER, ALL QUESTIONS ANSWERED. PT RESTING IN BED WITH EYES CLOSED, RESPIRATIONS EVEN AND UNLABORED. CPOX AT 98%. S/O AT BEDSIDE. CALL LIGHT IN REACH AND BED ALARM ON.
--- NOTE | 2022-08-29 07:45 | NUR ---
PATIENT IN BED RESTING, EYED CLOSED. RESPIRATIONS UNLABORED. SPOUSE RESTING ON COUCH. ACU CHECK COMPLETED. CALL LIGHT WITHIN REACH.
--- NOTE | 2022-08-29 08:10 | NUR ---
THIS BROKE BEATER MACHINE OPERATOR HELPED PT TO BEDSIDE COMMODE BEFORE X-RAY. PT A LITTLE UNSTEADY ON FEET. DID NOT VOID. PT BACK IN BED. CALL LIGHT WITHIN REACH.
--- NOTE | 2022-08-29 09:10 | NUR ---
MORNING ASSESSMENT COMPLETE. PT DROWSY AWAKENS EASILY TO VOICE, ORIENTED X4. CRACKLES HEARD AT BILAT LUNG BASES. MINIMAL NON PITTING EDEMA TO BLE. PT BLADDER SCANNED DUE TO DECREASED URINE OUTPUT, 457ML. DISCUSSED BLADDER SCAN WITH DR TAVAREZ WELL BP 104/64, MAP 72, HEART RATE 87 AND SCHEDULED LASIX AND METOPROLOL ADMINISTRATION, VERBAL ORDER TO HOLD METOPROLOL AT THIS DOSE, STRAIGHT CATH IF PT UNABLE TO VOID. NO FURTHER ORDERS AT THIS TIME. PT UPDATED. PT DENIES FURTHER NEEDS AT THIST ADAMA. CALL LIGHT IN REACH.
--- NOTE | 2022-08-29 09:20 | NUR ---
PT UP AND VOIDED 350 ML CLEAR YELLOW URINE. BACK TO BED 1 PERSON ASSIST, UNSTEADY ON FT. DENIES FURTHER NEEDS AT THIS TIME. CALL LIGHT IN REACH.
--- NOTE | 2022-08-29 09:40 | NUR ---
PT LYING IN BED AFTER MEAL, EYES CLOSED. VITALS AND I/O'S COMPLETED. CALL LIGHT WITHIN REACH.
--- NOTE | 2022-08-29 11:15 | NUR ---
PT RESTING QUIETLY WITH EYES CLOSED, RESPIRATIONS EVEN AND UNLABORED. O2 SAT 98% ON 2LNC. PT DROWSY, AWAKENS TO VOICE THEN BACK TO SLEEP. PT DENIES NEEDS AT THIS TIME. CALL LIGHT IN REACH.
--- NOTE | 2022-08-29 13:12 | NUR ---
PT C/O NAUSEA WITH EATING LUNCH. GIVEN PRN ZOFRAN SEE EMAR. PT DENIES FURTHER NEEDS AT THIS TIME. CONTINUIES TO BE DROWSY, AWAKENS TO VOICE, ORIENTED X4. CALL LIGHT IN REACH.
--- NOTE | 2022-08-29 17:50 | NUR ---
PT IN BED RESTING, EYES CLOSED. VITALS AND I/O'S COMPLETED. PT DID NOT WANT TO EAT DINNER QUITE YET. OXYGEN ON, CALL LIGHT WITHIN REACH.
--- NOTE | 2022-08-29 19:18 | NUR ---
BEDSIDE REPORT RECEIVED FROM VAN RN, PT AWAKE AND ALERT, WITHOUT COMPLAINTS AT THIS TIME, PT CHEERFUL.
--- NOTE | 2022-08-29 20:00 | NUR ---
PT AWAKE, ALERT, SIGN OTHER IN ROOM, PT REQUESTING SNACK, EATING PART OF SANDWHICH,
--- NOTE | 2022-08-29 20:45 | NUR ---
PT ASSISTED UP TO BSC, VOIDED YELLOW LAWANDA URINE, BACK TO BED, ATTEMPTING TO REST.
--- NOTE | 2022-08-29 20:55 | NUR ---
PT AWAKE AND ALERT, VS STABLE AND ASSESSMENT DONE, ACCUCHECK 206, 3 UNITS HUMALOG SQ GIVEN.
--- NOTE | 2022-08-29 21:00 | NUR ---
SL IN RIGHT FOREARM, INTACT, DRESSING INTACT, NO SIGNS OF INFILTRATION. SITE FLUSHES WELL WITH 10ML NS.
--- NOTE | 2022-08-29 21:06 | NUR ---
ANTIBODIC INFUSING WELL AFTER SL FLUSHED WELL, DRESSING INTACT.
--- NOTE | 2022-08-29 21:16 | NUR ---
PT REQUESTED MELETONIN, GIVEN PER ORDER TO HELP PT REST.
--- NOTE | 2022-08-29 21:26 | NUR ---
PT MOANING AND RESTLESS, STATES SHE DOESN'T FEEL WELL, FEELING NAUSEATED AND REQUESTING COUGH MEDICINE. PT MEDICATED WITH ZOFRAN AND ROBITUSSIN PER ORDER. SUPPORT GIVEN,
--- NOTE | 2022-08-29 22:00 | NUR ---
PT UP TO BSC, C/O OF FEELING HOT, TEMP IN ROOM DECREASED PER PT REQUEST. FAN TO ROOM.
--- NOTE | 2022-08-29 22:17 | NUR ---
pt PROVIDED WITH FAN AND COOL RAG TO FOREHEAD PER pt REQUEST, pt SOMEWHAT ANXIOUS AND ALSO REPORTS POSSIBLE NEED TO HAVE A BM, PRIMARY RN DAYLIN NOTIFIED AND TO ASSIST. CALL LIGHT IN REACH, BED ALARM ON FOR SAFETY.
--- NOTE | 2022-08-29 22:26 | NUR ---
FRIEND DAVONTE CALLED AND ASKED TO TALK TO pt, pt IN THE BATHROOM AND INSTRUCTED THIS RN TO GIVE FRIEND DAVONTE pt's PHONE NUMBER AND CALL pt IN 10-15 MINUTES. NUMBER PROVIDED TO FRIEND: [phone]
--- NOTE | 2022-08-29 22:30 | NUR ---
PT MOANING, C/O BEING HOT AND NAUSEATED, COOL CLOTH GIVEN, UP TO BSC, UNABLE TO VOID AT THIS TIME, BACK TO BED, SUPPORT GIVEN.
--- NOTE | 2022-08-29 22:40 | NUR ---
PT REQUESTING SIGN TO BE ABLE TO LAY NEXT TO HER TO HELP CALM HER, BED ALARM TEMPORARILY TURNED OFF, PT INSTRUCTED SHE NEEDS TO CALL RN IF SHE WANTS TO GET UP, PT AGREES.
--- NOTE | 2022-08-30 00:10 | NUR ---
PT UP TO BSC WITH RN ASSIST, VOIDED 100ML LAWANDA URINE, PT STATES SHE IS FEELING BETTER AT THIS TIME. BACK TO BED, OXYGEN REPLACED, SIGN OTHER ASLEEP ON COUCH, BED ALARM BACK ON.
--- NOTE | 2022-08-30 01:10 | NUR ---
PT ASLEEP, RESP EVEN AND REGULAR, SATS STABLE AT 96%, SIGN OTHER LEFT UNIT AT THIS TIME.
--- NOTE | 2022-08-30 02:00 | NUR ---
PT UP TO BSC, VOIDED YELLOW URINE, REQUESTING SANDWICH, DISCUSSED HOW NOT AVAILABLE AT THIS TIME, PT DROWSY, ATTEMPTING TO REST.
--- NOTE | 2022-08-30 04:50 | NUR ---
PT ASLEEP, RESP EVEN REG, OX SAT 97%
--- NOTE | 2022-08-30 05:15 | NUR ---
SL IN RIGHT FORE ARM DRSG INTACT.
--- NOTE | 2022-08-30 05:15 | NUR ---
LAB IN FOR AM BLOOD DRAW, ASSESSMENT,VS AMD I/O DONE, STANDING WT DONE, PT REQUEST PUDDING, GIVEN, PT WITHOUT COMPLAINTS, BACK TO BED RESTING.
--- NOTE | 2022-08-30 07:20 | NUR ---
RECIEVED REPORT FROM EMMA MAO. PT IS SLEEPING IN BED, FAMILY IS IN ROOM. BREATHING IS EVEN AND UNLABORED. NO NEEDS AT THIS TIME.
--- NOTE | 2022-08-30 08:16 | NUR ---
PATIENT SITTING UP IN BED THIS AM. FAMILY IN ROOM. WALKED PT TO THE BATHROOM, PT SWAYED SLIGHTLY WHILE WALKING, THIS LEATHER STITCHER HELP THE PATIENT'S HIPS TO STABILIZE. COFFEE WAS GIVEN TO PATIENT AND FAMILY. OXYGEN ON, CALL LIGHT WITHIN REACH.
--- NOTE | 2022-08-30 08:36 | NUR ---
PT IS AWAKE AND ALERT IN BED, FAMILY IS IN ROOM. PT REFUSED LOVENOX INJECTION, STATING THAT SHE "WALKS ENOUGH". AWARE. PT WOULD LIKE TO HAVE SECONDARY IV REMOVED.
--- NOTE | 2022-08-30 09:48 | NUR ---
REMOVED IV IN LEFT WRIST DUE TO PT REQUEST. C/O "BURNING" AND "IT HURTS". CATHETER INTACT. NO REDNESS, SWELLING, OR BLEEDING. PT AWARE IF OTHER IV GOES BAD WE WILL NEED TO RESTICK.
--- NOTE | 2022-08-30 10:02 | NUR ---
PATIENT IN BED AFTER MEAL AND USING THE RESTROOM. VITALS AND I/O'S COMPLETED. OXYGEN/CPOX ON. CALL LIGHT WITHIN REACH.
--- NOTE | 2022-08-30 14:14 | NUR ---
PATIENT IN BED AFTER MEAL. VITALS AND I/O'S COMPLETED. FAMILY IN ROOM. CALL LIGHT WITHIN REACH.
--- NOTE | 2022-08-30 16:21 | NUR ---
PT UP TO TOILET AMBULATES STEADY ON HER FEET. SATS 98% WITH ACTIVITY. RETURNS TO SITTING IN BED AGREES SHE IS READY FOR EVENING MEAL, STATES HER SUGAR WILL LIKELY BE HIGH BECAUSE SHE HAS BEEN EATING BEANS AND WIENNIES AND HAS ORDERED MAC AND CHEESE FOR EVENING MEAL. DENIES SOB OR ANY DISCOMFORTS AT THIS TIME
--- NOTE | 2022-08-30 17:24 | NUR ---
PT HAS VISITORS X4 SITTING UP EATING EVENING MEAL DENIES NEEDS OF
--- NOTE | 2022-08-30 18:02 | NUR ---
PATIENT LYING IN BED, EYES CLOSED. VITALS AND I/O'S COMPLETED. CALL LIGHT WITHIN REACH.
--- NOTE | 2022-08-30 19:12 | NUR ---
SHIFT REPORT RECEIVED BY CRISTINA RN, PT ASLEEP, RESP EVEN AND REGULAR, WITHOUT DISTRESS. OX SAT 97%
--- NOTE | 2022-08-30 19:49 | NUR ---
CALL LIGHT ANSWERED. SBA TO RESTROOM FOR VOID. 500 ML CLEAR VOID IN TOILET, BLOOD NOTED, pt STATES ON MENSES. SUPPLIES AVAILABLE. BACK IN BED, CPOX ON. CALL LIGHT IN REACH.
--- NOTE | 2022-08-30 20:55 | NUR ---
TELE BATTERY CHANGED. pt RESTING IN BED. AWAKENS TO VOICE. CPOX ON. NO REQUESTS AT THIS TIME.
--- NOTE | 2022-08-30 21:45 | NUR ---
PT HAS SL IN RIGHT FOREARM, WINDOW DRESSING, INTACT, WITHOUT INFILTRATION, FLUSHES WELL WITH 5ML NS.
--- NOTE | 2022-08-30 21:45 | NUR ---
PT AWAKE AND ALERT, SIGN OTHER AT BEDSIDE, VS AND ASSESSMENT DONE, ACCUCHECK DONE, PT REQUESTING MELATONIN.
--- NOTE | 2022-08-30 21:57 | EKG ---
[facility] [address] [facility] [place] [address] Signed Sinus tachycardia Left axis deviation Nonspecific T wave abnormality Abnormal ECG When compared with ECG of 24-AUG-2022 00:11, Nonspecific T wave abnormality, worse in Lateral leads Confirmed by Jasmin Tavarez MD () on 08/30/2022 9:57:05 PM Electronically Signed By: JASMIN TAVAREZ MD 08/30/22 2157 PATIENT NAME: MIKE GLASGOW Electrocardiogram DATE OF : 80 PHYSICIAN: JASMIN TAVAREZ MD REPORT #: [id number] REPORT IS CONFIDENTIAL AND NOT TO BE RELEASED WITHOUT AUTHORIZATION
--- NOTE | 2022-08-30 22:20 | NUR ---
1 UNIT HUMALOG INSULIN GIVEN FOR ACCUCHECK OF 171, MELATONIN GIVEN PER ORDER., PT CHEERFUL, HOPEFUL TO GO HOME TOMORROW.
--- NOTE | 2022-08-30 23:30 | NUR ---
PT ASSISTED UP TO BR, VOIDING LIGHT YELLOW URINE, PT REPORTS SHE IS CURRENTLY MENSTRATING, LIGHT FLOW NOTED, LINEN CHANGED, PT BACK TO BED, GAIT NOTED TO BE MORE STEADY TONIGHT, OXYGEN REPLACED AT 1L NC. PT RESTING.
--- NOTE | 2022-08-31 00:45 | NUR ---
PT ASLEEP, RESP EVEN AND REGULAR, OX SAT 95%
--- NOTE | 2022-08-31 02:00 | NUR ---
PT ASSISTED UP TO BR TO VOID, GAIT SLIGHTLY UNSTEADY, VOIDED AND BACK TO BED, OXYGEN REPLACED.
--- NOTE | 2022-08-31 02:40 | NUR ---
SL INTACT IN RIGHT FOREARM
--- NOTE | 2022-08-31 02:40 | NUR ---
PT REQUESTING FRESH ICE WATER, GIVEN, ASSESSMENT COMPLETED.
--- NOTE | 2022-08-31 04:00 | NUR ---
PT AWAKE, ALERT, JUST VOIDED AND BACK TO BED, WITHOUT COMPLAINTS, VS STABLE, PT STATES SHE WILL REPLACE HER OWN OXYGEN IN A FEW MINUTES.
--- NOTE | 2022-08-31 07:20 | NUR ---
BEDSIDE HANDOFF REPORT RECEIVED FROM SENIOR QUALITATIVE RESEARCHER RN. PT SLEEPING, LEFT UNDISTURBED, CONTINUOUS PULSE OX 96% ON ROOM AIR.
--- NOTE | 2022-08-31 09:00 | NUR ---
Spoke with Latha. She looks much better today. Feet are no longer edematous. She again states she doesn't like the insulin she picked up from [facility] in [place] as the syringes do not have a jesus for 3 units. Her boyfriend was able to let me see the insulin syrgines and they do have 2 unit jesus. Instructed for the 3 units, she would need to use the 1.5 jesus. Understanding stated. We discussed what she can do to prevent an exaceration of her CHF. 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 She cont. to plan on using the alf here in town when their coupons for motel 6 run out.
--- NOTE | 2022-08-31 09:15 | NUR ---
PT RESTING IN BED, SIGNIFICANT OTHER AT BEDSIDE. PT ON ROOM AIR, LUNG SOUNDS CLEAR, DENIES SOB, CONTINUES TO HAVE NASAL CONGESTION. PT DENIES NAUSEA, BOWEL TONES ACTIVE, TOLERATING 60G DIET, GIVEN 3 UNITS HUMALOG FOR BG 218. CMS INTACT, WITHOUT EDEMA. PT WITH COMPLAINT OF LEFT FLANK PAIN, GIVEN TYLENOL. IV ABX INFUSING. DISCUSSED PLAN OF CARE FOR THE DAY. PT DENIES OTHER NEEDS AT THIS TIME.
--- NOTE | 2022-08-31 09:50 | NUR ---
PT NOTIFIED TO CALL NURSING STAFF WHEN SHE FEELS SHE NEEDS TO URINATE, NEED FULL BLADDER FOR ULTRASOUND, PT VERBALIZED UNDERSTANDING.
--- NOTE | 2022-08-31 12:13 | NUR ---
PT RESTING IN BED, BG 163, GIVEN 1 UNIT SS HUMALOG. PT DENIES OTHER NEEDS AT THIS TIME. PT WANTS TO SHOWER AFTER LUNCH.
--- NOTE | 2022-08-31 12:39 | NUR ---
PATIENT WANTS TO TAKE A SHOWER AFTER LUNCH SOMETIME.
--- NOTE | 2022-08-31 14:18 | NUR ---
PT IN SHOWER, DENIES NEEDS.
--- NOTE | 2022-08-31 14:45 | NUR ---
PT COMPLETED WITH SHOWER, NOW RESTING IN BED. PT DENIES NEEDS AT THIS TIME.
--- NOTE | 2022-08-31 19:18 | NUR ---
SHIFT REPORT RECEIVED PER DEIDRE RN, PT ASLEEP, RESP EVEN AND REG
--- NOTE | 2022-08-31 19:23 | NUR ---
PT IN BED, REPLACED TEL BATTERY, DENIED NEEDS.
--- NOTE | 2022-08-31 19:40 | NUR ---
CALL LIGHT ANSWERED. GREEN BLANKET PROVIDED. EMPTIED HAT WITH 300 ML URINE AND A SMALL FORMMED BM. DENIES FURTHER NEEDS AT THIS TIME.
--- NOTE | 2022-08-31 21:00 | NUR ---
CALL LIGHT ANSWERED. pt REPORTS LEFT FLANK PAIN, 7/10 "KIDNEY PAIN". PRN TYLENOL ADMINISTERED. URINE HAT EMPTIED. VS COMPLETE, STABLE. PRIMARY RN DAYLIN IN ROOM. ICE WATER PROVIDED.
--- NOTE | 2022-08-31 21:15 | NUR ---
SL REMAINS IN RIGHT FOREARM, DRESSING INTACT, FLUSHES WELL WITH 5ML NS, WNL
--- NOTE | 2022-08-31 21:15 | NUR ---
PT AWAKE AND ALERT, CHEERFUL, MELATONIN GIVEN PER ORDER PER PT REQUEST, SS INSULING 5 UNITS GIVEN, SANDWICH BOX GIVEN PER PT REQUEST.
--- NOTE | 2022-08-31 22:35 | NUR ---
PT ASLEEP, RESP EVEN AND REG AT 24/MIN, LAYING ON RIGHT SIDE, OX IN PLACE AT 1L NC, SIGN OTHER IN BED WITH PT.
--- NOTE | 2022-09-01 00:20 | NUR ---
PT AWAKE, RESTING IN BED, WITHOUT REQUESTS AT THIS TIME
--- NOTE | 2022-09-01 02:22 | NUR ---
PT ASLEEP, RESP EVEN AND REGULAR
--- NOTE | 2022-09-01 03:10 | NUR ---
SL REMAINS INTACT RIGHT FOREARM
--- NOTE | 2022-09-01 03:10 | NUR ---
PT AWAKE AND ALERT, REQUESTING CRACKERS AND WATER, GIVEN, RECENTLY VOIDED, REPORTS SOME RESIDUAL FLANK PAIN BUT DENIES TYLENOL AT THIS TIME, ASSESSMENT COMPLETED AND UNCHANGED.
--- NOTE | 2022-09-01 05:40 | NUR ---
TREE FRUIT AND NUT CROPS FARMER IN ROOM. VS COMPLETE, STABLE. DAILY STANDING WEIGHT. BACK IN BED. CALL LIGHT IN REACH. LIGHTS OFF IN ROOM.
--- NOTE | 2022-09-01 06:02 | NUR ---
CALL LIGHT ANSWERED. pt COMPLAINS OF CONGESTION, PRN ROBITUSSIN DM ADMINISTERED. RESTING IN BED WITH SIGNIFICANT OTHER. NO ADDITIONAL REQUESTS.
--- NOTE | 2022-09-01 07:20 | NUR ---
HANDOFF REPORT RECEIVED FROM CABLE STRANDER RN.
--- NOTE | 2022-09-01 07:38 | NUR ---
PT IN BED. BS TAKEN. NO NEEDS AT THIS TIME. PT DECLINED ICE WATER. RN NOTIFIED. CALL LIGHT WITHIN REACH
--- NOTE | 2022-09-01 09:20 | NUR ---
PT RESTIN IN BED. PT ON ROOM AIR, LUNG SOUNDS CLEAR, DENIES SOB, CONTINUES TO HAVE NASAL CONGESTION. BOWEL TONES ACTIVE, DENIES NAUSEA, GIVEN 1 UNIT HUMALOG FOR BLOOD GLUCOSE 160. PT WITHOUTE EDEMA. CHRNOIC TINGLING IN LOWER EXTREMITIES. IV FLUSHED, PATENT, IV LASIX GIVEN, ROCEPHIN INFUSION STARTED. PT ASSISTED TO BATHROOM, VOIDING QS. PT DENIES OTHER NEEDS AT THIS TIME, HOPING TO DISCHARGE TODAY.
--- NOTE | 2022-09-01 10:30 | NUR ---
Spoke with Latha. Per 9:30 report with plans is to dc tomorrow. She cont. to plan to return to [facility] [address] on [address]. I gave her the phone number for [facility] as they are posting on FB they are giving out food boxes today until 1 pm. She states they have picked up food boxes there in the past. She is attempting to call her boyfriend as he is using her cell phone. She states he is not answering. She denies other needs.
--- NOTE | 2022-09-01 11:30 | NUR ---
Update from Dr. Hussein, plan is to dc this pt tomorrow. Boyfriend is planning on return to [place] tomorrow as parents are ill. . It is unclear if pt will go with him or return to [facility]. I will discuss this with the pt.
--- NOTE | 2022-09-01 13:00 | NUR ---
In and spoke with Latha and Alexander. Pt is crying and wants to dc. Alexander plans on returning to [facility] as his mother was injured and he dad has just discharged from the hospital. He is unable to care for self. Latha is upset as she is concerned he will leave for [place] and leave her here. We discussed why Dr. Hussein wants her to remain. Pt is very upset and stating she just wants to go [facility]. She doesn't want to end of in [place] alone. I will call Dr. Hussein. Called and updated Dr. Hussein. He wanted pt to stay to check her labs in the am. He states pt does not have a pcp to follow up with and she will need labs again in the next few days. Let him know pt was able to remember where she goes for medical. She uses the [facility]. I will call and check if she has a PCP there and if she can get labs drawn this week.
--- NOTE | 2022-09-01 13:05 | NUR ---
PT GIVEN 1 UNIT SS HUMALOG FOR BLOOD GLUCOSE 174. PT SIGNIFICANT OTHER JANIE AT BEDSIDE, REQUESTING UPDATE, WITH PT PERMISSION DISCUSSED HEP C DIAGNOSIS, LABS AND PLAN OF CARE. PT DENIES OTHER NEEDS AT THIS TIME.
--- NOTE | 2022-09-01 14:00 | NUR ---
Was able to contact the [facility]. Latha is their pt and sees Dr. Brown. Scheduled fu appt for 09/08/22 at 2:30. They state pt needs a written order and a lab sheet and can walk in and get labs at any time. I will update Dr. Hussein. Updated Latha, she requests I call Alexander as he has not returned. Let her know he had said he would be a little while as he was picking up one of his children to return pop cans for gas money. I will attempt to call at 1500.
--- NOTE | 2022-09-01 15:00 | NUR ---
Attempted to call Sergio on Latha's phone. Phone goes to voice mail. Left a message asking him to call or notify nursing when he returns as Dr. Hussein would like to speak with him and Latha about after care if she discharges.
[2022-09-01] MEDS ORDERED: CEFPODOXIME PR200 MG PO (15:31)
[2022-09-01] MEDS ORDERED: TORSEMIDE20 MG PO (15:32)
--- NOTE | 2022-09-01 15:45 | NUR ---
Alexander clarke and in to update and discuss dc. Pt agrees to take meds, get labs drawn this week at her pcp, crab picker meds enroute to home when she gets to [place] to a [employer]. Rx's given by nurse, see Dr. Hussein's charting. Pt to dc to [facility] will follow up with Dr. Brown at the [facility]. 1630 faxed chart to pts pcp.
--- NOTE | 2022-09-01 16:22 | NUR ---
DISCHARGE INSTRUCTIONS REVIEWED WITH PT AND SIGNIFICANT LARRY SHELL. IV REMOVED, CATH INTACT. DISCUSSED HEP C DIAGNOSIS AND TO NOT SHARE NEEDLES/ RAZORS OR OTHER PERSONAL ITEMS. PT GETTING DRESSED AND BELONGINGS RETURNED.
== END 2022-09-01 16:32 | disposition home or self-care (01) | DRG 871 ==
LOC: ED 00:05 → MS 00:07
PROVIDERS: ADMIT Internal Medicine; ATTEND Family Medicine
DX: A41.9 Sepsis, unspecified organism (principal); I50.23 Acute on chronic systolic (congestive) heart failure; J18.9 Pneumonia, unspecified organism; N17.9 Acute kidney failure, unspecified; I13.0 Hypertensive heart and chronic kidney disease with heart failure and stage 1 through stage 4 chronic kidney disease, or unspecified chronic kidney disease; Z20.822 Contact with and (suspected) exposure to COVID-19; F15.10 Other stimulant abuse, uncomplicated; N18.32 Chronic kidney disease, stage 3b; E78.5 Hyperlipidemia, unspecified; F90.9 Attention-deficit hyperactivity disorder, unspecified type; E11.65 Type 2 diabetes mellitus with hyperglycemia; E11.22 Type 2 diabetes mellitus with diabetic chronic kidney disease; E83.42 Hypomagnesemia; B19.20 Unspecified viral hepatitis C without hepatic coma; Z90.49 Acquired absence of other specified parts of digestive tract; Z90.89 Acquired absence of other organs; Z88.2 Allergy status to sulfonamides; Z88.6 Allergy status to analgesic agent; Z91.040 Latex allergy status; Z91.048 Other nonmedicinal substance allergy status; Z79.4 Long term (current) use of insulin; Z79.82 Long term (current) use of aspirin; Z79.899 Other long term (current) drug therapy
CPT/HCPCS: 36415; 71045; 71046; 76770; 80048; 80053; 81001; 83605; 83735; 83880; 84484; 84703; 85025; 85379; 87040; 87088; 87502; 93005; 93010; 94640; 94762; A9270; A9270-GY; C9803; J0456; J0696; J1650; J1815; J1940; J2405; J3475; J7060; P9047; U0003

== ENCOUNTER 2022-09-05 21:44 | Emergency (ER) | payer OTHER ==
[~2022-09-05] VITALS: Ht 162.6 cm; Wt 70.1 kg
[~2022-09-05 21:44] MED LIST changes: +CEFPODOXIME PR200 MG PO
--- OUTSIDE RECORDS SUMMARY | 2022-09-05 21:52 | XMS ---
PreManage Notification: MIKE GLASGOW Security Wireless Sales Expert Events 1 event(s) in the past 18 months Most recent security events: Elopement at [facility] 10/19/2021 09:46 - Patient eloped before treatment completed. - Patient with suicidal and/or homicidal ideations eloped. - Patient eloped with IV in place. Details: PATIENT LEFT AMA CRITERIA MET - 6 ED Visits in 6 Months - [facility] - Has Care Guidelines - [facility] - 2 Visits in 30 Days - [facility] - 3 Facilities in 90 Days CARE PROVIDERS ABEL TANG Physician Coating Engineer: Medical Current PHONE: Unknown MORENA YUN [facility] Current PHONE: Unknown Guidelines Source: [facility] Guidelines Date: 06/19/2022 Care Recommendation: [...] use \T\nbsp; Care History Substance Use/Overdose 06/19/2022 [facility] Uses methamphetamines. 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 E.D. VISIT COUNT (12 MO.) 4 [facility] 18 [facility] 1 [facility] 9 [facility]. TOTAL 32 NOTE: Visits indicate total known visits. ED/UCC VISIT TRACKING (12 MO.) 09/05/2022 21:46 [facility] [place] TYPE: Emergency COMPLAINT: - KIDNEY HURTING AND HARD TO BREATH 08/28/2022 00:06 [facility] [place] TYPE: Emergency COMPLAINT: - ABD PAIN,KIDNEY PAIN,SOB 08/24/2022 00:02 [facility] [place] TYPE: Emergency COMPLAINT: - LEGS ARE SWELLING SOB DIAGNOSES: - Heart failure, unspecified - Patient's noncompliance with other medical treatment and regimen due to unspecified reason - Allergy status to other antibiotic agents - Type 2 diabetes mellitus without complications - Allergy status to other drugs, medicaments and biological substances - Other residential (current) drug therapy - Shortness of breath - Other nonmedicinal substance allergy status - Other stimulant abuse, uncomplicated - FDC (current) use of insulin - Allergy status to narcotic agent - FDC (current) use of aspirin - Allergy status to sulfonamides 08/18/2022 09:47 [facility] TYPE: Emergency COMPLAINT: - ABD PAIN, L FLANK PAIN, SORE THROAT, SOB, HEADACHE 07/14/2022 01:48 [facility] TYPE: Emergency COMPLAINT: - COUGH DIAGNOSES: - Type 2 diabetes mellitus without complications [...] Allergy status to narcotic agent - Other residential (current) drug therapy - termite control service representative (current) use of aspirin - FDC (current) use of insulin 07/09/2022 15:05 [facility] TYPE: Emergency DIAGNOSES: - Abdominal Pain - Epigastric pain - n/v - Tubulo-interstitial nephritis, not specified as acute or chronic - Emesis - Tachycardia, unspecified 06/16/2022 21:02 [facility] TYPE: Emergency COMPLAINT: - SWALLOW PROBLEM, FLANK PAIN, DIZZYNESS DIAGNOSES: - Allergy status to sulfonamides - Hypomagnesemia - Other intermission coordinator (current) drug therapy - FDC (current) use of aspirin - Contact with and (suspected) exposure to COVID-19 - FDC (current) use of insulin - Vomiting, unspecified - Type 2 diabetes mellitus with diabetic chronic kidney disease - Allergy status to narcotic agent - Acute kidney failure, unspecified - Chronic kidney disease, unspecified 06/15/2022 16:03 [facility] TYPE: Emergency COMPLAINT: - ABD PAIN, VOMITING, SHARP PAIN IN STERNUM 06/12/2022 20:24 [facility] TYPE: Emergency DIAGNOSES: - Vomiting; Abdominal Pain - Emesis 06/11/2022 09:18 [facility] [place] TYPE: Emergency DIAGNOSES: - Nausea with vomiting, unspecified - Vomiting (Severe) - vomitting - Upper abdominal pain, unspecified 06[facility]10/2022 04:12 [facility] DIAGNOSES: - Vomitting, abdominal pain - Nausea with vomiting, unspecified - Generalized abdominal pain 05/30/2022 23:50 [facility] TYPE: Emergency DIAGNOSES: - Wound Check - Facial swelling - Cellulitis, unspecified 04/16/2022 04:06 Jew CarlaJose [facility] TYPE: Emergency DIAGNOSES: - Syncope and collapse - Syncope - chin, knee, abdominal pain 04/15/2022 09:45 [facility] [place] TYPE: Emergency DIAGNOSES: - Nausea with vomiting, unspecified - Emesis - FDC (current) use of insulin - Epigastric pain - Trichomoniasis, unspecified - Hyperglycemia, unspecified - Type 2 diabetes mellitus with hyperglycemia - stomach pain,fever 04/13/2022 17:20 Jew CarlaJose [facility] TYPE: Emergency DIAGNOSES: - Type 2 diabetes mellitus with hyperglycemia - Other specified soft tissue disorders - Localized edema - FDC (current) use of insulin - Other specified diabetes mellitus with hyperglycemia - Leg Swelling - Type 2 diabetes mellitus with diabetic chronic kidney disease - Chronic kidney disease, unspecified - Other specified abnormal findings of blood chemistry 03/30/2022 07:10 Jew CarlaJose [facility] TYPE: Emergency DIAGNOSES: - Wound - Pilonidal cyst with abscess - Other injury of unspecified body region, initial encounter - Other acute postprocedural pain - Pain, unspecified - post surgery pain 03/29/2022 15:[facility] TYPE: Emergency DIAGNOSES: - Pilonidal cyst with abscess - Abscess - Leg Edema 03/28/2022 19:00 [facility] TYPE: Emergency DIAGNOSES: - Abscess - Sore 02/20/2022 15:30 [facility] TYPE: Emergency DIAGNOSES: - Other specified disease of esophagus - Emesis - Vomitting - Tachycardia, unspecified - Duodenitis without bleeding - Other specified noninflammatory disorders of uterus 02/15/2022 15:38 [facility] TYPE: Emergency DIAGNOSES: - Nausea with vomiting, unspecified - Hyperglycemia, unspecified - Emesis - Constipation, unspecified - Nausea, Vomiting Plus 12 More Visits INPATIENT VISIT TRACKING (12 MO.) 08/29/2022 11:[address] [facility] [place] TYPE: Medical Surgical COMPLAINT: - CHF EXACERBATION,PNEUMONIA DIAGNOSES: - Acute on chronic systolic (congestive) heart failure - Hyperlipidemia, unspecified - Pneumonia, unspecified organism - Acquired absence of other organs - Contact with and (suspected) exposure to COVID-19 - Unspecified viral hepatitis C without hepatic coma - Hypomagnesemia - Hypertensive heart and chronic kidney disease with heart failure and stage 1 through stage 4 chronic kidney disease, or unspecified chronic kidney disease - Other stimulant abuse, uncomplicated - Acquired absence of other specified parts of digestive tract - Allergy status to sulfonamides - Other residential (current) drug therapy - Allergy status to analgesic agent - Chronic kidney disease, stage 3b - FDC (current) use of aspirin - termite control service representative (current) use of insulin - Acute kidney failure, unspecified - Attention-deficit hyperactivity disorder, unspecified type - Type 2 diabetes mellitus with diabetic chronic kidney disease - Latex allergy status - Sepsis, unspecified organism - Type 2 diabetes mellitus with hyperglycemia - Other nonmedicinal substance allergy status 08/18/2022 12:49 [facility] [place] TYPE: Medical [facility] COMPLAINT: - PULMONARY EDEMA DIAGNOSES: - Chronic passive congestion of liver - Acute on chronic systolic (congestive) heart failure - Type 2 diabetes mellitus with hyperglycemia - Other intermission coordinator (current) drug therapy - Chronic kidney disease, stage 3b - Hyperlipidemia, unspecified - Acquired absence of other organs - Anemia in chronic kidney disease - Other stimulant abuse, uncomplicated - Pleural effusion in other conditions classified elsewhere - Other stimulant abuse, uncomplicated - Allergy status to sulfonamides - Latex allergy status - Allergy status to analgesic agent - Other nonmedicinal substance allergy status - Acquired absence of other organs - Type 2 diabetes mellitus with diabetic chronic kidney disease - Latex allergy status - FDC (current) use of insulin - Type 2 [...] with and (suspected) exposure to COVID-19 - FDC (current) use of insulin - Acquired absence of other specified parts of digestive tract - Allergy status to sulfonamides - Other nonmedicinal substance allergy status - Pleural effusion in other conditions classified elsewhere - Hyperlipidemia, unspecified - Other residential (current) drug therapy - Acute pulmonary edema 10/02/2021 17:16 [facility] [place] TYPE: Medical Surgical DIAGNOSES: - Cellulitis, unspecified - Hyperglycemia, unspecified - Sepsis, unspecified organism - Dysuria - Urinary tract infection, site not specified - Cutaneous abscess, unspecified - Candidiasis, unspecified [email or web address]
[2022-09-06] MEDS ORDERED: SOAANZ40 MG PO (01:35)
== END 2022-09-06 01:59 | disposition home or self-care (01) ==
LOC: ED 21:44
DX: I50.9 Heart failure, unspecified (principal); E11.9 Type 2 diabetes mellitus without complications; Z88.2 Allergy status to sulfonamides; Z88.1 Allergy status to other antibiotic agents; Z88.8 Allergy status to other drugs, medicaments and biological substances; Z88.5 Allergy status to narcotic agent; Z91.040 Latex allergy status; Z79.899 Other long term (current) drug therapy; Z79.82 Long term (current) use of aspirin; Z79.4 Long term (current) use of insulin
CPT/HCPCS: 36415; 71045; 80053; 83880; 85025; 96374; 99285-25; J1940